=== PATIENT | female | born 1960 | race Caucasian/White ===

== ENCOUNTER 2020-08-20 10:58 | Emergency (ER) | payer OTHER, SELFPAY ==
[2020-08-20 11:15] VITALS: BP 128/69; PULSE 66; RESP 18; TEMP 36.1; O2SAT 100; BMI 27.3
--- NOTE | 2020-08-20 12:25 | XR_ITS ---
EXAMINATION: XR CHEST CLINICAL INFORMATION: Syncope. COMPARISON: None TECHNIQUE: 2 views of the chest were obtained. FINDINGS: No significant abnormality is noted involving the heart, lungs, mediastinum, bony thorax or soft tissues. XR/XR chest 2V IMPRESSION: Unremarkable chest exam.
--- NOTE | 2020-08-20 12:25 | ECG_ITS ---
Test Reason : SYNCOPE Blood Pressure : / mmHG Vent. Rate : 058 BPM Atrial Rate : 058 BPM P-R Int : 138 ms QRS Dur : 080 ms QT Int : 408 ms P-R-T Axes : -02 016 029 degrees QTc Int : 400 ms Sinus bradycardia Otherwise normal ECG No previous ECGs available Referred By: Terrie Stone Electronically Signed By:LILY GUZMAN MD
--- NOTE | 2020-08-20 12:25 | CT_ITS ---
EXAMINATION: CT HEAD WITHOUT CONTRAST CLINICAL INFORMATION: Near syncope COMPARISON: None TECHNIQUE: Contiguous axial imaging was performed from the skull base to vertex without intravenous administration of contrast. This CT examination was performed using dose optimization techniques as appropriate, variously including the following: *Automated exposure control *Adjustment of mA and/or kV according to patient size (this includes techniques or standardized protocols for targeted exams where dose is matched to indication/reason for exam; i.e. extremities or head) *Use of iterative reconstruction technique DLP: 561 mGy-cm FINDINGS: There is no evidence of acute intracranial hemorrhage or territorial infarction. No abnormal mass effect or midline shift is seen. Stiles to white matter differentiation is well preserved. No extra-axial fluid collections are identified. The ventricles are normal in size. There is no abnormal attenuation within the brain parenchyma. The osseous structures and soft tissues are normal. The mastoid air cells and visualized portions of the paranasal sinuses are well aerated. CT/CT head/brain wo con IMPRESSION: Unremarkable exam.
--- NOTE | 2020-08-20 12:32 | ED_ITS ---
HPI - Dizziness General Chief Complaint: Syncope Stated Complaint: DIZZY,NEAR SYNCOPAL Time Seen by Provider: 08/20/20 12:23 Source: patient Mode of arrival: ambulatory Limitations: no limitations History of Present Illness HPI Narrative: 59-year-old female with a past medical history of anxiety here with near syncopal episode yesterday. The patient also she was up making coffee and started to have some blurry vision, felt lightheaded and nauseous and sat herself down on the ground. She tells me this episode lasted for about 15 minutes and then self-resolved. She was able to walk up her stairs and she laid down to rest for the afternoon. She called her primary care doctor today was referred to the emergency department for further evaluation. She denies any associated chest pain, palpitations, headache, shortness of breaths with the initial episode. She denies syncope. She denies incontinence or any other additional symptoms. Today she is feeling back to her normal self. MD elicited complaint: lightheadedness and near syncope Onset (ago): day(s) Timing: sudden onset Severity: mild Description: lightheadedness History of similar symptoms: No Exacerbating factors: movement/ambulation Relieving factors: remaining still and lying down Associated symptoms: nausea Associated neuro symptoms: vision changes Related Data Allergies Allergy/AdvReac Type Severity Reaction Status Date / Time morphine [MORPHINE] Allergy Unknown UNKNOWN Verified 08/20/20 11:17 Review of Systems Review of Systems: Yes all other systems are reviewed and are negative Constitutional: Constitutional: Reports no additional constitutional complaints, Denies body ache(s), Denies chills, Denies fever(s), Denies headache(s) and Denies weakness Eyes: Eyes: Reports no additional eye complaints and Reports change in vision ENT: Reports system reviewed and no additional complaints, except as documented, Reports dizziness, Denies headache(s), Denies nasal congestion, Denies nasal discharge and Denies neck pain Cardiovascular: Cardiovascular: Reports no additional cardiovascular complaints, Denies chest pain, Denies leg edema and Denies dyspnea Respiratory: Respiratory: Reports no additional respiratory complaints, Denies cough and Denies dyspnea Gastrointestinal: Gastrointestinal: Reports no additional gastrointestinal complaints, Denies abdominal pain, Denies diarrhea, Reports nausea and Denies vomiting Genitourinary: Genitourinary: Reports no additional female genitourinary complaints and Denies urinary incontinence Musculoskeletal: Musculoskeletal: Reports no additional musculoskeletal complaints, Denies back pain, Denies arthralgias, Denies joint swelling, Denies neck pain, Denies numbness and Denies tingling Integumentary/Breasts: Skin/Breast: Reports system reviewed and no additional complaints, except as docu and Denies rash Neurologic: Reports system reviewed and no additional complaints, except as documented, Denies Abnormal speech present, Reports dizziness, Denies headache(s), Denies numbness, Denies tingling and Denies weakness PMFSH Past Medical History Attestation statement: The following information was validated with the patient. Source: old records reviewed and nursing notes reviewed Medical History Anxiety Foot fracture Social History Social History Alcohol intake: never Smoking Status: Never smoker Use of substances other than those prescribed or required for medical reasons: No Advance Directives: No Advance Directives Information Provided: Yes Physical Exam Vital Signs: Vital Signs: Last Vital Signs Temp 98 F 08/20/20 13:25 Pulse 70 08/20/20 13:25 Resp 16 08/20/20 13:25 BP 103/60 08/20/20 13:25 Pulse Ox 98 08/20/20 13:25 Body Mass Index 27.3 Const: General: cooperative, healthy appearing, comfortable and no acute dis tress Orientation/consciousness: patient oriented x3 Limitations: no limitations HENMT: Head: Yes normal to inspection Ears: hearing grossly normal bilaterally General nose exam: Normal external nose present Face and sinus: Yes normal facial exam Mouth: Normal oral and palatal mucosa present Throat: Yes posterior oropharynx normal Eyes: General: appearance normal, both eyes and all related structures Pupils: Equal, round and reactive pupils present Neck: Neck: Yes normal visual inspection Chest: Chest palpation & inspection: normal inspection of the chest Resp: Effort & Inspection: normal respiratory effort Auscultation: clear to auscultation bilaterally Cardio: Rate: regular rate Rhythm: regular rhythm Peripheral pulses: Peripheral pulses 2+ throughout GI: Inspection: Yes normal to inspection Palpation (GI): Soft to palpation and nontender Auscultation: normal bowel sounds Back/Spine/Pelvis: Thoracic/Lumbar Spine: thoracic and lumbar spine normal to inspection Skin: General skin exam: no rashes or lesions noted Neuro: General: patient oriented x3, no focal motor deficits and normal sensation to monofilament Cranial nerves: Yes CN's II-XII intact bilaterally, Yes Equal, round and reactive pupils present, Yes Bilaterally intact EOM present, Yes Nystagmus not present, Yes Normal facial strength present and Yes Midline tongue present Cognition (Neuro): normal cognition Speech: No Abnormal speech present Gait exam (Neuro): Normal gait present Motor exam (neuro): 5/5 motor strength present throughout Sensory Exam: Normal double simultaneous stimulation for sensation Deep tendon reflexes (DTR's): Right patellar reflex intensity grade: 2+, Left patellar reflex intensity grade: 2+, Right ankle reflex intensity grade: 2+ and Left ankle reflex intensity grade: 2+ Coordination: [id number] test normal, eonk-of-noft test normal and tandem gait normal Extrem: General: Yes normal to inspection Course Course Course Narrative: 59-year-old female here with a near syncopal episode which occurred yesterday. She is now feeling improved. The episode seems triggered by standing up moving around and improved with rest. On arrival she is well appearing. No complaints. Stable vital signs. Normal neurological exam. Will check labs, UA, EKG, orthostatics vital signs, CT head. 1420- imaging unremarkable. Orthostatics negative. Labs unremarkable. Patient unable to provide urine sample mother do not think we change in disposition. Likely in her syncope may be to hypoglycemia or vasovagal. Patient is feeling well and is asymptomatic and has been up and ambulating with no complaints. Discussed that she can follow up outpatient with her primary care doctor. Reviewed worrisome signs and symptoms and when to return to the emergency department. Comfortable discharge home. MDM - Dizziness MDM Narrative Medical decision making narrative: orthostatic hypotension, vasovagal syncope, dehydration, electrolyte abnormality, anemia, ACS, ICH versus lesion Less likely orthostatic hypotension with negative orthostatics, less likely dehydration with unremarkable labs, less likely electrolyte abnormality with [place] oral labs. Unlikely anemia with normal CBC. Unlikely ACS with unremarkable EKG and negative troponin with atypical symptoms. Less likely ICH/lesion with negative CT. Medical Records Attestation: I reviewed the patient's medical records. Lab Data Attestation: I reviewed the patient's lab results. Result diagrams: 08/20/20 13:18 08/20/20 13:18 Labs: Lab Results 08/20/20 08/20/20 08/20/20 Range/Units 13:18 13:18 13:18 WBC 9.0 (4.8-10.8) X10*3/uL RBC 4.75 (4.20-5.50) X10*6/uL Hgb 12.2 (12.0-16.0) g/dl Hct 38.9 (37-47) % MCV 81.9 (80-98) fL MCH 25.7 L (27.0-33.0) pg MCHC 31.4 (31.0-35.0) g/dl RDW 13.8 (11.0-16.0) % Plt Count 262 (160-400) X10*3/uL MPV 9.4 (9.4-12.3) fL Immature Gran % (Auto) 0.3 (0.0-0.4) % Neut % (Auto) 73.0 (45-73) % Lymph % (Auto) 16.8 L (20-40) % [place] % (Auto) 8.5 (2-11) % Eos % (Auto) 1.1 (0-4) % Baso % (Auto) 0.3 (0-2) % Lymph # (Auto) 1.5 (1.2-4.9) X10*3/uL [place] # (Auto) 0.8 (0.1-1.2) X10*3/uL Eos # (Auto) 0.1 (0.0-0.4) X10*3/uL Baso # (Auto) 0.0 (0.0-0.2) X10*3/uL Abs Immat Gran (auto) 0.03 (0.00-0.03) X10*3/uL Absolute Neuts (auto) 6.5 (2.0-8.3) X10*3/uL Absolute Nucleated RBC 0.000 (0.0-0.012) X10*3/uL Nucleated RBC % (auto) 0.0 (0.0-0.2) /100WBC Hold Blue Top SEE NOTE Sodium 140 (135-145) mmol/L Potassium 3.9 (3.3-5.1) mmol/l Chloride 106 (96-108) mmol/L Carbon Dioxide 27 (22-29) mmol/L Anion Gap 11 L (12-20) BUN 20 H (9-16) mg/dL Creatinine 0.71 (0.5-1.4) mg/dL Estim Creat Clear Calc 71.0 Estimated GFR > 60 Random Glucose 85 (60-115) mg/dL Calcium 9.2 (8.4-10.2) mg/dL Magnesium 1.9 (1.6-2.6) mg/dL Total Bilirubin 0.3 (0.0-1.0) mg/dL Direct Bilirubin < 0.2 (0.0-0.5) mg/dL AST 14 (5-31) U/L ALT 10 (0-31) U/L Alkaline Phosphatase 73 (39-117) U/L Troponin I High Sens (<3.5-17.0) ng/L Total Protein 6.9 (6.5-8.0) g/dL Albumin 4.2 (3.5-5.0) g/dL 08/20/20 Range/Units 13:18 WBC (4.8-10.8) X10*3/uL RBC (4.20-5.50) X10*6/uL Hgb (12.0-16.0) g/dl Hct (37-47) % MCV (80-98) fL MCH (27.0-33.0) pg MCHC (31.0-35.0) g/dl RDW (11.0-16.0) % Plt Count (160-400) X10*3/uL MPV (9.4-12.3) fL Immature Gran % (Auto) (0.0-0.4) % Neut % (Auto) (45-73) % Lymph % (Auto) (20-40) % [place] % (Auto) (2-11) % Eos % (Auto) (0-4) % Baso % (Auto) (0-2) % Lymph # (Auto) (1.2-4.9) X10*3/uL [place] # (Auto) (0.1-1.2) X10*3/uL Eos # (Auto) (0.0-0.4) X10*3/uL Baso # (Auto) (0.0-0.2) X10*3/uL Abs Immat Gran (auto) (0.00-0.03) X10*3/uL Absolute Neuts (auto) (2.0-8.3) X10*3/uL Absolute Nucleated RBC (0.0-0.012) X10*3/uL Nucleated RBC % (auto) (0.0-0.2) /100WBC Hold Blue Top Sodium (135-145) mmol/L Potassium (3.3-5.1) mmol/l Chloride (96-108) mmol/L Carbon Dioxide (22-29) mmol/L Anion Gap (12-20) BUN (9-16) mg/dL Creatinine (0.5-1.4) mg/dL Estim Creat Clear Calc Estimated GFR Random Glucose (60-115) mg/dL Calcium (8.4-10.2) mg/dL Magnesium (1.6-2.6) mg/dL Total Bilirubin (0.0-1.0) mg/dL Direct Bilirubin (0.0-0.5) mg/dL AST (5-31) U/L ALT (0-31) U/L Alkaline Phosphatase (39-117) U/L Troponin I High Sens < 3.5 (<3.5-17.0) ng/L Total Protein (6.5-8.0) g/dL Albumin (3.5-5.0) g/dL Imaging Data CT scan - head: Attestation: I personally reviewed and interpreted this imaging study as follows: Radiologist's impression: EXAMINATION: CT HEAD WITHOUT CONTRAST CLINICAL INFORMATION: Near syncope COMPARISON: None TECHNIQUE: Contiguous axial imaging was performed from the skull base to vertex without intravenous administration of contrast. This CT examination was performed using dose optimization techniques as appropriate, variously including the following: *Automated exposure control *Adjustment of mA and/or kV according to patient size (this includes techniques or standardized protocols for targeted exams where dose is matched to indication/reason for exam; i.e. extremities or head) *Use of iterative reconstruction technique DLP: 561 mGy-cm FINDINGS: There is no evidence of acute intracranial hemorrhage or territorial infarction. No abnormal mass effect or midline shift is seen. Stiles to white matter differentiation is well preserved. No extra-axial fluid collections are identified. The ventricles are normal in size. There is no abnormal attenuation within the brain parenchyma. The osseous structures and soft tissues are normal. The mastoid air cells and visualized portions of the paranasal sinuses are well aerated. CT/CT head/brain wo con IMPRESSION: Unremarkable exam. Chest x-ray: Attestation: I personally reviewed and interpreted this imaging study as follows: Radiologist's impression: EXAMINATION: XR CHEST CLINICAL INFORMATION: Syncope. COMPARISON: None TECHNIQUE: 2 views of the chest were obtained. FINDINGS: No significant abnormality is noted involving the heart, lungs, mediastinum, bony thorax or soft tissues. XR/XR chest 2V IMPRESSION: Unremarkable chest exam. ECG Data Attestation: I personally reviewed and interpreted this ECG as follows: ECG interpretation date: 08/20/20 ECG interpretation time: 11:40 Interpretation: sinus Bry with a rate of 58, normal MO, normal qrs, normal QT, normal ST segment Discharge Plan Discharge Clinical Impression: Near syncope Patient Disposition: Home, Self-Care Instructions: Near Syncope (ED) Additional Instructions: change positions slowly. If you feel lightheaded sit down immediately and is safe place Eat small frequent meals throughout the day. Stay well hydrated Referrals: Mahi Freeman MD [Primary Care Provider] - 2 days Interventions: ED Discharge Assessment Last Done: 08/20/20 14:22 Discharge Date/Time: 08/20/20 14:23
[2020-08-20 13:22] VITALS: BP 103/60; PULSE 60
[2020-08-20 13:23] VITALS: BP 111/70; PULSE 68
[2020-08-20 13:25] VITALS: BP 103/60; PULSE 70; RESP 16; TEMP 36.6; O2SAT 98
[2020-08-20 13:27] LABS: MANUAL DIFF FLAG NO
[2020-08-20 13:34] LABS: Basophils Percent Auto 0.3 % (0-2); Eosinophils Absolute Auto 0.1 X10*3/uL (0.0-0.4); Eosinophils Percent Auto 1.1 % (0-4); Hematocrit 38.9 % (37-47); Hemoglobin 12.2 g/dl (12.0-16.0); Imm Gran Abs Auto 0.03 X10*3/uL (0.00-0.03); Imm Gran Pct Auto 0.3 % (0.0-0.4); Lymphocytes Absolute Auto 1.5 X10*3/uL (1.2-4.9); Lymphocytes Percent Auto 16.8 % (20-40); Mean Corpuscular HGB Conc 31.4 g/dl (31.0-35.0); Mean Corpuscular Hemoglobin 25.7 pg (27.0-33.0); Mean Corpuscular Volume 81.9 fL (80-98); Mean Platelet Volume 9.4 fL (9.4-12.3); Monocytes Absolute Auto 0.8 X10*3/uL (0.1-1.2); Monocytes Percent Auto 8.5 % (2-11); Neutrophils Absolute Auto 6.5 X10*3/uL (2.0-8.3); Platelet Count 262 X10*3/uL (160-400); Red Blood Count 4.75 X10*6/uL (4.20-5.50); Red Cell Distribution Width 13.8 % (11.0-16.0)
[2020-08-20 14:02] LABS: Alanine Aminotransferase 10 U/L (0-31); Albumin Level 4.2 g/dL (3.5-5.0); Alkaline Phosphatase 73 U/L (39-117); Anion Gap 11 (12-20); Aspartate Amino Transferase 14 U/L (5-31); Bilirubin Direct < 0.2 mg/dL (0.0-0.5); Bilirubin Total 0.3 mg/dL (0.0-1.0); Blood Urea Nitrogen 20 mg/dL (9-16); Calcium 9.2 mg/dL (8.4-10.2); Carbon Dioxide 27 mmol/L (22-29); Chloride 106 mmol/L (96-108); Estimated Glomerular Filt Rate > 60; Glucose Random 85 mg/dL (60-115); Magnesium 1.9 mg/dL (1.6-2.6); Potassium 3.9 mmol/l (3.3-5.1); Sodium 140 mmol/L (135-145); Total Protein 6.9 g/dL (6.5-8.0)
[2020-08-20 14:06] LABS: Troponin-I High Sensitivity < 3.5 ng/L (<3.5-17.0)
== END 2020-08-20 14:23 | disposition home or self-care (01) ==
PROVIDERS: Nurse Practitioner Family; Emergency Provider Emergency Medicine Emergency Medical Services; PCP Internal Medicine
DX: R55 Syncope and collapse (principal); R42 Dizziness and giddiness
CPT/HCPCS: 36415; 70450; 71046; 80048; 80076; 83735; 84484; 85025; 93005; 99284; 99285

== ENCOUNTER 2021-03-09 09:22 | Emergency (ER) | payer OTHER, SELFPAY ==
[2021-03-09 10:01] VITALS: BP 109/64; PULSE 69; RESP 18; TEMP 36.6; O2SAT 98; BMI 30.9
--- NOTE | 2021-03-09 10:35 | ED.GENADULT ---
HPI - General Adult General Chief complaint: Extremity Injury, Lower Stated complaint: swollen legs, inflammation of toe Time Seen by Provider: 03/09/21 10:19 Source: patient Mode of arrival: ambulatory Limitations: no limitations History of Present Illness HPI narrative: 60 yo female presenting with nontraumatic right great toe pain for 1 week. She has been trying to get in to see her doctor but has not been able to. She has not been sleeping due to the pain. She reports the great toe is red and swollen. She has no history of similar episodes. She denies fevers. No trauma or injury. She is not diabetic. MD complaint: right great toe pain Onset (ago): week(s) (1) Location: right and lower extremity Radiation: non-radiation Severity: severe Severity scale (1-10): 8 Quality: stabbing and aching Pain Consistency: constant Relieving factors: none Exacerbating factors: movement Associated symptoms: denies other symptoms Treatments prior to arrival: none Related Data Previous Rx's Medication Instructions Recorded colchicine See Rx Instructions .ROUTE 03/09/21 .COMPLEX #6 tab naproxen 500 mg PO BID #20 tab 03/09/21 Allergies Allergy/AdvReac Type Severity Reaction Status Date / Time morphine [MORPHINE] Allergy Unknown UNKNOWN Verified 08/20/20 11:17 Review of Systems Review of Systems: Constitutional: No Fever, No Chills Cardiovascular: No Chest Pain, No SOB,, No Edema Respiratory: No Cough, No Sputum Gastrointestinal: No Nausea, No Vomiting Musculoskeletal: + joint pain, No Myalgias Skin: No Skin Lesions, No rash, +redness to great toe Neuro: No Weakness, No Numbness Heme/Lymph: No Bruising, No Lymphadenopathy PMFSH Past Medical History Attestation statement: The following information was validated with the patient. Medical History Anxiety Foot fracture Social History Social History Alcohol intake: never Advance Directives: Yes Advance Directives Information Provided: No Advance Directives on File: No Patient : No Physical Exam Vital Signs: Vital Signs: Last Vital Signs Temp 97.9 F 03/09/21 10:01 Pulse 69 03/09/21 10:01 Resp 18 03/09/21 10:01 BP 109/64 03/09/21 10:01 Pulse Ox 98 03/09/21 10:01 Body Mass Index 30.9 Appearance: Alert. Oriented X3. No acute distress. HEENT: normal inspection CVS: Normal heart rate and rhythm. Pulses normal. Respiratory: No respiratory distress. Skin: Skin warm and dry. Normal skin color. Normal skin turgor. No rashes. Extremities: right great toe with erythema, warmth, and tenderness to MCP joint and entire great toe. No nail bed abnormalities or tenderness. NV intact distally. Pain with slight movement of toe. Neuro: Oriented X 3. No motor deficit. No sensory deficit. Course Course Course Narrative: 60 y/o female presenting with right great toe pain, redness and swelling x1 week. Exam and clinical presentation are consistent with acute gout. No fevers to suggest septic joint. She is not diabetic. Will treat with colchicine and NSAID and have her f/u with her PCP next week. Patient counseled and agrees with plan. Stable for discharge home. Discharge Plan Discharge Clinical Impression: Gout Qualifiers: Gout site: toe Gout etiology: idiopathic Chronicity: acute Laterality: right Qualified Code(s): M10.071 - Idiopathic gout, right ankle and foot Patient Disposition: Home, Self-Care Instructions: Low Purine Diet (ED), Gout (ED) Additional Instructions: Take the medications as prescribed. Elevate your foot when able. Follow up with your doctor next week. If you have worsening pain come back to the ER for further evaluation. Prescriptions: New colchicine 0.6 mg tablet See Rx Instructions .ROUTE .COMPLEX Qty: 6 RF: 0 naproxen 500 mg tablet 500 mg PO BID Qty: 20 RF: 0
== END 2021-03-09 11:00 | disposition home or self-care (01) ==
PROVIDERS: Emergency Provider Emergency Medicine Emergency Medical Services; PCP Internal Medicine
DX: M10.071 Idiopathic gout, right ankle and foot (principal)
CPT/HCPCS: 99282; 99283

== ENCOUNTER 2021-04-19 21:26 | Emergency (ER) | payer OTHER, SELFPAY ==
--- NOTE | ~2021-04-19 | XR_ITS ---
EXAMINATION: XR HAND, RIGHT CLINICAL INFORMATION: Hand pain COMPARISON: None TECHNIQUE: PA, lateral, and oblique views of the right hand. FINDINGS: Some generalized osteopenia is present. The there is soft tissue swelling around the PIP joint of the fifth digit with pericapsular marked calcifications seen laterally. Some mild degenerative changes are present at the DIP joints. No fractures are seen. XR/XR hand RT 2V IMPRESSION: No evidence of a fracture. Exuberant calcification lateral to the PIP joint fifth digit as described above. This could be the residua of prior trauma. No gross erosive changes are seen and no joint space narrowing is detected at this joint
[2021-04-19 21:35] VITALS: BP 136/57; PULSE 57; RESP 20; TEMP 36.8; O2SAT 98; BMI 26.2
--- NOTE | 2021-04-19 23:09 | ED.SKABFB ---
HPI - Skin/Abscess/Foreign Bdy General Chief complaint: Skin/Abscess/Foreign Body Stated complaint: BUMP ON FINGER Time Seen by Provider: 04/19/21 22:09 Source: patient Mode of arrival: ambulatory Limitations: no limitations History of Present Illness HPI narrative: no bites, no known trauma, was cleaning a closet when it started MD complaint: other (R little finger pain) Onset (ago): day(s) (2) Tetanus up to date: yes Location: RUE (small finger (5th)) Severity: moderate Quality: aching (throbbing) and constant Pain Consistency: constant Relieving factors: none Exacerbating factors: palpation and movement Context: other (states her finger just started hurting no known trauma) Associated symptoms: denies other symptoms Treatments prior to arrival: other (went to started cephalexin today) Related Data Previous Rx's Medication Instructions Recorded colchicine See Rx Instructions .ROUTE 03/09/21 .COMPLEX #6 tab naproxen 500 mg PO BID #20 tab 03/09/21 doxycycline hyclate 100 mg PO BID 7 Days #14 cap 04/19/21 hydrocodone-acetaminophen 1 tab PO Q6H PRN #12 tab 04/19/21 ondansetron 4 mg PO Q8H PRN #20 tab 04/19/21 prednisone 40 mg PO DAILY 4 Days #8 tab 04/19/21 Allergies Allergy/AdvReac Type Severity Reaction Status Date / Time morphine [MORPHINE] Allergy Unknown UNKNOWN Verified 04/19/21 21:35 Review of Systems Review of Systems: Constitutional : No Fever, No Chills ENT/Mouth : No Ear Pain, No Hoarseness, No sore throat Eyes: No Eye Pain, No Swelling, No Redness, No Foreign Body Cardiovascular : No Chest Pain, No SOB Respiratory : No Cough, No Dyspnea Gastrointestinal : No Nausea, No Vomiting, No Diarrhea, No abdominal Pain Genitourinary : No Dysuria, No Hematuria Musculoskeletal : positive joint pain, No Myalgias, pos Joint Swelling Skin : No Skin lacerations, pos rash Neuro : No Weakness, No Numbness, No Loss of Consciousness PMFSH Past Medical History Attestation statement: The following information was validated with the patient. Medical History Anxiety Foot fracture Gout Social History Social History (Updated 04/19/21 @ 23:22 by Nely Awan DO) Alcohol intake: never Patient Tobacco Use Status: Never used Tobacco Advance Directives: No Advance Directives Information Provided: Yes Patient : No Physical Exam Vital Signs: Vital Signs: Last Vital Signs Temp 98.2 F 04/19/21 21:35 Pulse 57 04/19/21 21:35 Resp 20 04/19/21 21:35 BP 136/57 L 04/19/21 21:35 Pulse Ox 98 04/19/21 21:35 Body Mass Index 26.2 Appearance: Alert. Oriented X3. No acute distress. Eyes: Pupils equal, round and reactive to light. ENT: Pharynx normal. Neck: Normal inspection. Neck supple. CVS: Normal heart rate and rhythm. Pulses normal. Respiratory: No respiratory distress. Breath sounds normal. Abdomen: Soft and non-tender. Skin: Skin warm and dry. Normal skin color. Normal skin turgor. Extremities: No lower extremity edema. No calf ttp R hand 5th digit on dorsum PIP red and warm to touch, mild swelling noted, some extension onto the 5th MCP, no prox tendon sheath ttp, distal NV intact, not overtly red but pink Neuro: Oriented X 3. No motor deficit. No sensory deficit. MDM - Skin/Abscess/Foreign Bdy MDM Narrative Medical decision making narrative: 60 yo female with hx of gout atraumatic R 5th digit pain and swelling - pink warm painful, no signs of tendon shealth involvement unsure if this is infectious or inflammatory will add on doxy as well as steroids and if no improvement in 1 day return to ED. Discharge Plan Discharge Clinical Impression: Arthralgia Qualifiers: Joint pain location: hand Laterality: right Qualified Code(s): M25.541 - Pain in joints of right hand Cellulitis Qualifiers: Site of cellulitis: extremity Site of cellulitis of extremity: finger Laterality: right Qualified Code(s): L03.011 - Cellulitis of right finger Patient Disposition: Home, Self-Care Instructions: Cellulitis (ED), Arthralgia (ED) Additional Instructions: return to ED for any worsening symptoms or concerns RETURN IF IT WORSENS OR NO IMPROVEMENT IN 24 HOURS CONTINUE CEPHALEXIN Prescriptions: New doxycycline hyclate 100 mg capsule 100 mg PO BID 7 Days Qty: 14 RF: 0 hydrocodone-acetaminophen 5-325 mg tablet 1 tab PO Q6H PRN (Reason: pain) Qty: 12 RF: 0 prednisone 20 mg tablet 40 mg PO DAILY 4 Days Qty: 8 RF: 0 ondansetron 4 mg tablet,disintegrating 4 mg PO Q8H PRN (Reason: nausea and vomiting) Qty: 20 RF: 0 No Action colchicine 0.6 mg tablet See Rx Instructions .ROUTE .COMPLEX Qty: 6 RF: 0 naproxen 500 mg tablet 500 mg PO BID Qty: 20 RF: 0 Stand Alone Forms: Work/School Release
[2021-04-19] MEDS: predniSONE 20 MG TABLET 40 MG PO (23:20)
[2021-04-19] MEDS: oxyCODONE HCl Immed Release 5 MG TABLET 10 MG PO (23:20)
== END 2021-04-19 23:53 | disposition home or self-care (01) ==
LOC: HO.ED 23:31
PROVIDERS: Emergency Provider Emergency Medicine
DX: M25.541 Pain in joints of right hand (principal); L03.011 Cellulitis of right finger; M10.9 Gout, unspecified
CPT/HCPCS: 73120; 99283

== ENCOUNTER 2023-09-16 08:01 | Outpatient (AMB) | payer OTHER, SELFPAY ==
--- NOTE | 2023-09-16 08:08 | MHC.OFFVIS ---
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 Intake Note: Pt presents to the office for new pt evaluation for trigeminal neuralgia. Crime Scene Investigator Required: No Allergies morphine [MORPHINE] Allergy (Unknown, Verified 09/16/23 08:09) UNKNOWN meloxicam Allergy (Mild, Uncoded 09/16/23 08:33) Rash HPI HPI Comments History of Present Illness Details 62y/o female with h/o left tirgeminal neurlagia comes for further evaluation.It started more than 10 years ago.The pain starts behind her left ear and radiates to lower face. she describes it like a tooth pain. she was diagnosed with trigeminal neuralgia.It was episodic but now she describes a chronic constant pain. sometimes she feels like her face is swollen.she denies numbness or tingling. But she is sensitive to touch.she has been on gabapentin . she was seen by a neurologist at [place] in the past.The pain does not worsen with cold air or brushing her teeth but any time she has an illness like sorethroat the pain worsens. she also has neck pain and used to see pain management. No further history was obtainable. [facility] Medical History Hyperlipidemia Depression Bipolar 1 disorder Left shoulder pain IBS (irritable bowel syndrome) Neck pain Attention and concentration deficit Ankylosing spondylitis lumbar region Carotid artery stenosis Facial pain, atypical Gout Foot fracture Anxiety Surgical History Hx of cholecystectomy Previous section Social History Alcohol intake: never Patient Tobacco Use Status: Never used Tobacco Physical Exam Vital Signs: Last Vital Signs Pulse 73 09/16/23 08:09 Resp 16 09/16/23 08:09 BP 102/58 L 09/16/23 08:09 Pulse Ox 98 09/16/23 08:09 Oxygen Delivery Method Room Air 09/16/23 08:09 BMI result Body Mass Index 29.1 Const General: cooperative, healthy appearing and in distress Nutritional Appearance: overweight Orientation/consciousness: patient oriented x3 Eyes Pupils: Equal, round and reactive pupils present Neck Other: tightness and tenderness in trapezius, levators, splenius on the left Neuro General: patient oriented x3, tone normal, moves all extremities and no focal motor deficits Cranial nerves: Yes Facial sensation intact/muscles of mastication intact, Yes Equal, round and reactive pupils present, Yes Bilaterally intact EOM present, Yes Nystagmus not present, Yes Normal facial strength present and Yes Midline tongue present Cognition (Neuro): normal cognition Gait exam (Neuro): Antalgic gait present Motor exam (neuro): 5/5 motor strength present throughout and Normal motor muscle tone present throughout Deep tendon reflexes (DTR's): Right triceps reflex intensity grade: 2+, Left triceps reflex intensity grade: 2+, Rt Biceps (C5, C6): 2+, Left biceps reflex intensity grade: 2+, Right brachioradialis reflex intensity grade: 2+, Left brachioradialis reflex intensity grade: 2+, Right patellar reflex intensity grade: 4+ and Left patellar reflex intensity grade: 4+ Coordination: [id number] test normal Assessment & Plan Assessment & Plan (1) Facial pain, atypical: Comment: ?trigeminal neuralgia Left Code(s): G50.1 - Atypical facial pain (2) Neck pain: Comment: torticollis Code(s): M54.2 - Cervicalgia Plan I will evaluate her with MRI brain to r/o trigeminal nerve irritation Trial her on tegretol XR 200mg bid- CBC CMP in 4 weeks she sees Rheumatology for her back pain and has a MRI L spine scheduled Orders: Orders MR head/brain wo/w con Today G50.1 - Atypical facial pain Complete Blood Count Auto Diff 1 Month G50.1 - Atypical facial pain Comprehensive Met. Panel 1 Month G50.1 - Atypical facial pain Medications: New carbamazepine ER 200 mg PO BID 60 tabs 6RF Discontinued prednisone Discontinued Reason: Entered in error 40 mg (2 x 20 mg) PO DAILY 4 days 8 tabs 0RF Coding Level of Care Code New Pt Level 4 (89382) Diagnoses Facial pain, atypical G50.1 Neck pain M54.2
[2023-09-16 08:09] VITALS: BP 102/58; PULSE 73; RESP 16; O2SAT 98; BMI 29.1
== END 2023-09-16 08:36 | disposition home or self-care (01) ==
PROVIDERS: PCP Internal Medicine; Referring Provider Internal Medicine; Visit Provider Psychiatry & Neurology Neurology
DX: G50.1 Atypical facial pain (principal); M54.2 Cervicalgia
CPT/HCPCS: 99204

== ENCOUNTER → 2023-09-16 08:01 | Outpatient (BNVA) | payer OTHER, SELFPAY | PROVIDERS: PCP Internal Medicine; Referring Provider Internal Medicine; Visit Provider Psychiatry & Neurology Neurology | DX: G50.1 Atypical facial pain (principal); M54.2 Cervicalgia | CPT/HCPCS: 99202 ==

== ENCOUNTER 2023-11-09 09:32 | Outpatient (REF) | payer OTHER, SELFPAY ==
--- NOTE | ~2023-11-09 | MR_ITS ---
MRI OF THE BRAIN WITH AND WITHOUT IV CONTRAST INDICATION: Atypical facial pain. COMPARISON: Head CT 08/20/2020. TECHNIQUE: Multiplanar multisequence MR imaging of the brain was obtained without and following the administration of 7 mL of Gadavist without complication. FINDINGS: There is no pathologic intracranial enhancement. A right superior cerebellar artery loop deformed the upper surface of the RIGHT trigeminal nerve cisternal segment. Mild T2 signal changes within the supratentorial and infratentorial brain are slightly progressed when compared to the 06/02/2018 brain MRI and remain nonspecific. There is no hydrocephalus, extra-axial surface collection, or herniation. The major flow voids at the skull base are preserved. There is no acute infarct on diffusion-weighted imaging. The midline structures are normal. The cerebellar tonsils are normally positioned. The cerebellum and brainstem are normal. The craniocervical junction is normal. Osseous marrow signal intensity is homogenous. The visualized soft tissues are unremarkable. There is a small right mastoid effusion. MR/MR head/brain wo/w con IMPRESSION: - No acute intracranial findings. No pathologic enhancement intracranially. No enhancing lesions along the course of the trigeminal nerves. A right superior cerebellar artery loop deformed the upper surface of the RIGHT trigeminal nerve cisternal segment. - Mild T2 signal changes within the supratentorial and infratentorial brain are slightly progressed when compared to the 06/02/2018 brain MRI and remain nonspecific. - Small right mastoid effusion.
[2023-11-09] MEDS: gadobutroL 7.5 ML VIAL IVPUSH (10:29)
== END 2023-11-09 09:33 | disposition home or self-care (01) ==
LOC: HO.MRI 09:32
PROVIDERS: PCP Internal Medicine; Visit Provider Psychiatry & Neurology Neurology
DX: G50.1 Atypical facial pain (principal)
CPT/HCPCS: 70553; A9585

== ENCOUNTER 2023-11-26 12:57 | Outpatient (AMB) | payer OTHER, SELFPAY ==
--- NOTE | 2023-11-26 13:15 | A.OFFVIS_ITS ---
Intake Vital Signs 11/26/23 13:22 Height 5 ft Weight 143 lb 2 oz BMI 27.9 BP 112/70 Blood Pressure Location Lt brachial Position Sitting Pulse 64 Pulse Source Pulse Oximeter Pulse Oximetry (%) 98 Oxygen Delivery Method Room Air Intake Visit Reasons: 1m f/u Trigeminal Neuralgia Per - CONF Intake Note: Patient presents for 1 month f/u. Allergies morphine [MORPHINE] Allergy (Unknown, Verified 11/26/23 13:20) UNKNOWN meloxicam Allergy (Mild, Uncoded 09/16/23 08:33) Rash HPI HPI Comments History of Present Illness Details 62 y/o female with h/o left tir geminal neurlagia comes for follow up. Brain MRI report reviewed. -No acute intracranial findings. No path ologic enhancement intracranially. No enhancing lesions along the course of the trigeminal nerves. A right superior cerebellar artery loop deformed the upper surface of the RIGHT trigeminal nerve cisternal segment. - Mild T2 signal changes within the supr atentorial and infratentorial brain are slightly progressed when compared to the 06/02/2018 brain MRI and remain nonspecific. - Small right mastoid effusion. Pt reports she feels something like a small ball inside of her anterior and lateral neck. It is not painful, but she constantly feeling something sitting inside of her neck. Pt denies numbness or tingling, but sensitive to touch. She tried tegretol XR 200mg bid for several times, but it caused GI upset and stomach ache. She stopped taking it. [facility] Medical History Hyperlipidemia Depression Bipolar 1 disorder Left shoulder pain IBS (irritable bowel syndrome) Neck pain Attention and concentration deficit Ankylosing spondylitis lumbar region Carotid artery stenosis Facial pain, atypical Gout Foot fracture Anxiety Surgical History Hx of cholecystectomy Previous section Social History Alcohol intake: never Patient Tobacco Use Status: Never used Tobacco Review of Systems Const All systems reviewed & are unremarkable except as noted in HPI and below Physical Exam Vital Signs: Last Vital Signs Pulse 64 11/26/23 13:22 BP 112/70 11/26/23 13:22 Pulse Ox 98 11/26/23 13:22 Oxygen Delivery Method Room Air 11/26/23 13:22 BMI result Body Mass Index 27.9 Const General: cooperative, healthy appearing and in distress Nutritional Appearance: overweight Orientation/consciousness: patient oriented x3 Eyes Pupils: Equal, round and reactive pupils present Neck Other: tightness and tenderness in trapezius, levators, splenius on the left Neuro General: patient oriented x3, tone normal, moves all extremities and no focal motor deficits Cranial nerves: Yes Facial sensation intact/muscles of mastication intact, Yes Equal, round and reactive pupils present, Yes Bilaterally intact EOM present, Yes Nystagmus not present, Yes Normal facial strength present and Yes Midline tongue present Cognition (Neuro): normal cognition Gait exam (Neuro): Antalgic gait present Motor exam (neuro): 5/5 motor strength present throughout and Normal motor muscle tone present throughout Deep tendon reflexes (DTR's): Right triceps reflex intensity grade: 2+, Left triceps reflex intensity grade: 2+, Rt Biceps (C5, C6): 2+, Left biceps reflex intensity grade: 2+, Right brachioradialis reflex intensity grade: 2+, Left brachioradialis reflex intensity grade: 2+, Right patellar reflex intensity grade: 4+ and Left patellar reflex intensity grade: 4+ Coordination: [id number] test normal Assessment & Plan Assessment & Plan (1) Facial pain, atypical: Comment: ?trigeminal neuralgia Left Code(s): G50.1 - Atypical facial pain (2) Neck pain: Comment: torticollis Code(s): M54.2 - Cervicalgia Plan Advised patient to undergo US of her neck soft tissue to check thyroid, lymph node lesions, and other masses. Pt was evaluated with Dr. Buitrago. Orders: Orders US soft tiss head and/or neck 11/26/23 G50.1 - Atypical facial pain, M54.2 - Cervicalgia Coding Level of Care Code Est Pt Level 3 (46477) Diagnoses Facial pain, atypical G50.1 Neck pain M54.2
[2023-11-26 13:22] VITALS: BP 112/70; PULSE 64; O2SAT 98; BMI 27.9
== END 2023-11-26 13:50 | disposition home or self-care (01) ==
LOC: HO.HSMC 12:57
PROVIDERS: PCP Internal Medicine; Visit Provider Nurse Practitioner Family
DX: G50.1 Atypical facial pain (principal); M54.2 Cervicalgia
CPT/HCPCS: 99213

== ENCOUNTER → 2023-11-26 12:57 | Outpatient (BNVA) | payer OTHER, SELFPAY | PROVIDERS: PCP Internal Medicine; Visit Provider Nurse Practitioner Family | DX: G50.1 Atypical facial pain (principal); M54.2 Cervicalgia | CPT/HCPCS: 99212 ==

== ENCOUNTER 2025-07-19 11:04 | Emergency (ER) | payer OTHER, SELFPAY ==
--- NOTE | ~2025-07-19 | XR_ITS ---
EXAMINATION: XR FOOT, LEFT CLINICAL INFORMATION: pain COMPARISON: None available. TECHNIQUE: AP, lateral, and oblique views of the left foot. FINDINGS: Degenerative changes in the proximal distal interphalangeal joints of the toes. Probable osteotomy versus old trauma in the proximal phalanx of the fourth toe. Degenerative changes in the tarsometatarsal joints. Small plantar calcaneal spur. Small exostosis at the Achilles tendon insertion. No joint effusion. No lytic or blastic lesions. No acute cortical disruption or malalignment. XR/XR foot LT min 3V IMPRESSION: Osteoarthrosis/osteoarthritis without acute fracture or dislocation. Probable mild enthesopathy, Achilles tendon. Electronically signed by: Tray Mcdermott MD 07/19/2025 12:01 PM EDT
[2025-07-19 11:28] VITALS: BP 111/55; PULSE 85; RESP 16; TEMP 36.2; O2SAT 99; BMI 27.6
--- NOTE | 2025-07-19 11:29 | ED_ITS ---
HPI - Extremity Injury (Lower) General Chief Complaint: Extremity Problem Stated Complaint: Foot pain/swelling Time Seen by Provider: 07/19/25 11:40 Source: patient, family and old records reviewed Mode of arrival: ambulatory Limitations: no limitations History of Present Illness ED Provider: PAUL SAPP Narrative: 64 yo female with PMH of IBS, HLD, depression, bipolar, gout here with c/o few days of atraumatic L foot pain around the joint of the great toe with some redness and warmth. No numbness, weakness, No swelling or pain in calf. She has not taken anything for it at this point. complaint: other (foot pain) Onset (ago): day(s) (few) Injury: Left: foot Type of Injury: other Place: home Severity: moderate Relieving factors: immobilization Exacerbating factors: weight bearing, movement and palpation Associated symptoms: swelling Other symptoms: none Related Data Home Medications ?Medication ?Instructions ?Recorded ?Confirmed albuterol sulfate 90 mcg/actuation 1 inh inhalation Q4 -6H PRN 09/16/23 breath activated powder inhaler aspirin 81 mg chewable tablet 81 mg PO DAILY 09/16/23 atorvastatin 40 mg tablet 40 mg PO DAILY 09/16/23 azelastine 205.5 mcg (0.15 %) 1 spray intranasal BEDTI ME 09/16/23 nasal spray cetirizine 10 mg chewable tablet 10 mg PO DAILY dextromethorphan-guaifenesin 5 10 ml PO Q4-8H PRN 08/28 10/19 mg-100 mg/5 mL oral liquid fluoxetine 20 mg capsule 20 mg PO DAILY 09/16/23 fluticasone furoate 100 1 inh inhalation DAILY 09/16 mcg-vilanterol 25 mcg/dose inhalation powder gabapentin 300 mg capsule 300 mg PO BID 09/16/23 guaifenesin 600 mg tablet, 600 mg PO BID 09/16/23 extended release 12 hr (Mucinex) lorazepam 1 mg tablet 1 mg PO DAILY PRN 09/16/23 montelukast 10 mg tablet 10 mg PO DAILY 09/16/23 (Singulair) triamcinolone acetonide 55 mcg 1 spray intranasal PAOLA Y 09/16/23 nasal spray aerosol umeclidinium 62.5 mcg-vilanterol 1 inh inhalation PAOLA Y 12/21/23 25 mcg/actuation powdr for inhalation zolpidem 10 mg tablet 10 mg PO BEDTIME 09/16/23 Previous Rx's ?Medication ?Instructions ?Recorded colchicine 0.6 mg tablet See Rx Instructions .Route 0 03/09/21 .COMPLEX #6 tabs naproxen 500 mg tablet 500 mg PO BID #20 tabs 03/09 hydrocodone 5 mg-acetaminophen 325 1 tab PO Q6H PRN pa in #12 tabs 04/19/21 mg tablet ondansetron 4 mg disintegrating 4 mg PO Q8H PRN nausea and 04/19/21 tablet vomiting #20 tabs carbamazepine 200 mg 200 mg PO BID #60 tabs 09/16 tablet,extended release,12 hr hydrocodone 5 mg-acetaminophen 325 1 tab PO Q6H PRN pa in #10 tabs 07/19/25 mg tablet prednisone 20 mg tablet 40 mg (2 x 20 mg) PO DAILY 4 days 07/19/25 #8 tabs Allergies Allergy/AdvReac Type Severity Reaction Status Date / Time morphine (MORPHINE) Allergy Unknown UNKNOWN Verified 07/19/25 11:29 meloxicam Allergy Mild Rash Uncoded 09/16/23 08:33 Review of Systems 2 Review of Systems: Constitutional : No Fever, No Chills ENT/Mouth : No Ear Pain, No Hoarseness, No sore throat Eyes: No Eye Pain, No Swelling, No Redness, No Foreign Body Cardiovascular : No Chest Pain, No SOB Respiratory : No Cough, No Dyspnea Gastrointestinal : No Nausea, No Vomiting, No Diarrhea, No abdominal Pain Genitourinary : No Dysuria, No Hematuria Musculoskeletal : positive joint pain, No Myalgias, No Joint Swelling Skin : No Skin lacerations, No rash All other systems reviewed and are negative [facility] Past Medical History Attestation statement: The following information was validated with the patient. Source: old records reviewed Medical History Hyperlipidemia Depression Bipolar 1 disorder Left shoulder pain IBS (irritable bowel syndrome) Neck pain Attention and concentration deficit Ankylosing spondylitis lumbar region Carotid artery stenosis Facial pain, atypical Gout Foot fracture Anxiety Surgical History Hx of cholecystectomy Previous section Social History Social History Alcohol intake: never Patient Tobacco Use Status: Never used Tobacco Physical Exam 2 Vital Signs: Vital Signs: Last Vital Signs Temp 97.1 F 07/19/25 11:28 Pulse 85 07/19/25 11:28 Resp 16 07/19/25 11:28 BP 111/55 L 07/19/25 11:28 Pulse Ox 99 07/19/25 11:28 O2 Del Method Room Air 07/19/25 11:28 BMI result Body Mass Index 27.6 Appearance: Alert. Oriented X3. No acute distress. Eyes: Pupils equal, round and reactive to light. ENT: Pharynx normal. Neck: Normal inspection. Neck supple. CVS: Normal heart rate and rhythm. Pulses normal. Respiratory: No respiratory distress. Breath sounds normal. Abdomen: Soft and nontender. Skin: Skin warm and dry. Normal skin color. Normal skin turgor. Extremities: No lower extremity edema. L great toe MTP joint mild swelling and redness, ttp on dorrsum of foot - DP and PT 2+ foot warm and well perfused Neuro: Oriented X 3. No motor deficit. No sensory deficit. Course Course Course Narrative: This is an RME: Additional HPI, ROS, PE not included below will be deferred to primary provider. RME assessment and note performed by: Delores Rodriguez PA-C This is a 2-ybhe-mde-female, with a hx of HLD, BPD, who presents to the ER with complaints of left foot pain x 3 days. Reports that her left foot is red, painful. Reports that she has had no injury or trauma. Reports hx of gout, symptoms feel some what similar. Left foot nonerythematous, tender throughout. No calf tenderness Plan: xrays, labs, further ER eval needed Medical Decision Making Medical Decision Making [facility] Narrative: 64 yo female with PMH of IBS, HLD, depression, bipolar, gout here with c/o L foot pain no trauma on exam appears consistent with gout which she has had before on exam on cellulitis, she is NV intact, labs, XRAY and start on steroids and pain control. discussed side effects of steroids with patient Differential Diagnosis Differential Diagnoses: The differential diagnosis associated with the presentation includes gout, arthritis, infection Admission/Observation Consideration of admission/observation: Escalation of care including admission/observation considered labs reassuring stable for DC Lab Data [facility] Lab Attestation statement: I reviewed the patient's lab results. 07/19/25 11:52 07/19/25 11:52 Labs: Lab Results 07/19/25 Range/Units 11:52 WBC 8.9 (4.8-10.8) X10*3/uL RBC 4.83 (4.20-5.50) X10*6/uL Hgb 12.3 (12.0-16.0) g/dl Hct 39.2 (37.0-47.0) % MCV 81.2 (80.0-98.0) fL MCH 25.5 L (27.0-33.0) pg MCHC 31.4 (31.0-35.0) g/dl RDW 14.2 (11.0-16.0) % Plt Count 242 (160-400) X10*3/uL MPV 9.5 (9.4-12.3) fL Immature Gran % (Auto) 0.3 (0.0-0.4) % Neut % (Auto) 73.2 H (45-73) % Lymph % (Auto) 17.5 L (20-40) % [place] % (Auto) 7.4 (2-11) % Eos % (Auto) 1.1 (0-4) % Baso % (Auto) 0.5 (0-2) % Lymph # (Auto) 1.6 (1.2-4.9) X10*3/uL [place] # (Auto) 0.7 (0.1-1.2) X10*3/uL Eos # (Auto) 0.1 (0.0-0.4) X10*3/uL Baso # (Auto) 0.0 (0.0-0.2) X10*3/uL Abs Immat Gran (auto) 0.03 (0.00-0.03) X10*3/uL Absolute Neuts (auto) 6.5 (2.0-8.3) x10*3/uL Absolute Nucleated RBC 0.000 (0.0-0.012) X10*3/uL Nucleated RBC % (auto) 0.0 (0.0-0.2) /100WBC Independent Interpretation I performed an independent interpretation of an: Plain X-Ray (no fx) Radiology Impression Discussion of test interpretation with radiology: I have reviewed the radiologist's reading. External Record Review External record reviewed: Outpatient record Prescription Management I considered prescription management with: Pain Medication and Other Discharge Plan Discharge Clinical Impression: Gout Qualifiers: Gout site: foot Gout etiology: unspecified cause Chronicity: acute Laterality: left Qualified Code(s): M10.9 - Gout, unspecified Patient Disposition: Home, Self-Care Instructions: Gout (ED) Additional Instructions: labs reassuring xray no break take all meds with food return for any worsening pain, increased redness, fever over 100.4 or any other concersn. Prescriptions: New hydrocodone-acetaminophen 5-325 mg tablet 1 tab PO Q6H PRN (Reason: pain) Qty: 10 0RF Rx Instructions: partial fill okay; Partial Fill upon patient request. prednisone 20 mg tablet 40 mg PO DAILY 4 Days Qty: 8 0RF No Action colchicine 0.6 mg tablet See Rx Instructions .ROUTE .COMPLEX Qty: 6 0RF Rx Instructions: Take 2 tabs NOW then 1 tab an hour later. If still symptomatic in 3 days, repeat regimen naproxen 500 mg tablet 500 mg PO BID Qty: 20 0RF hydrocodone-acetaminophen 5-325 mg tablet 1 tab PO Q6H PRN (Reason: pain) Qty: 12 0RF ondansetron 4 mg tablet,disintegrating 4 mg PO Q8H PRN (Reason: nausea and vomiting) Qty: 20 0RF atorvastatin 40 mg tablet 40 mg PO DAILY aspirin 81 mg tablet,chewable 81 mg PO DAILY cetirizine 10 mg tablet,chewable 10 mg PO DAILY zolpidem 10 mg tablet 10 mg PO BEDTIME lorazepam 1 mg tablet 1 mg PO DAILY PRN gabapentin 300 mg capsule 300 mg PO BID albuterol sulfate 90 mcg/actuation aerosol powdr breath activated 1 inh inhalation Q4-6H PRN fluticasone furoate-vilanterol 100-25 mcg/dose blister with device 1 inh inhalation DAILY triamcinolone acetonide 55 mcg aerosol,spray 1 spray intranasal DAILY Rx Instructions: administer into each nostril montelukast [Singulair] 10 mg tablet 10 mg PO DAILY azelastine 205.5 mcg (0.15 %) spray,non-aerosol 1 spray intranasal BEDTIME Rx Instructions: administer into each nostril dextromethorphan-guaifenesin 5-100 mg/5 mL liquid 10 ml PO Q4-8H PRN carbamazepine 200 mg tablet extended release 12 hr 200 mg PO BID Qty: 60 6RF umeclidinium-vilanterol 62.5-25 mcg/actuation blister with device 1 inh inhalation DAILY fluoxetine 20 mg capsule 20 mg PO DAILY guaifenesin [Mucinex] 600 mg tablet extended release 12hr 600 mg PO BID Print Language: Tongan
[2025-07-19 11:56] LABS: MANUAL DIFF FLAG NO
[2025-07-19 12:00] LABS: Hematocrit 39.2 % (37.0-47.0); Hemoglobin 12.3 g/dl (12.0-16.0); Imm Gran Abs Auto 0.03 X10*3/uL (0.00-0.03); Imm Gran Pct Auto 0.3 % (0.0-0.4); Lymphocytes Absolute Auto 1.6 X10*3/uL (1.2-4.9); Mean Corpuscular HGB Conc 31.4 g/dl (31.0-35.0); Mean Corpuscular Hemoglobin 25.5 pg (27.0-33.0); Mean Corpuscular Volume 81.2 fL (80.0-98.0); NRBC Abs Auto 0.000 X10*3/uL (0.0-0.012); NRBC Pct Auto 0.0 /100WBC (0.0-0.2); Platelet Count 242 X10*3/uL (160-400); Red Blood Count 4.83 X10*6/uL (4.20-5.50); White Blood Count 8.9 X10*3/uL (4.8-10.8)
[2025-07-19 12:18] LABS: Alanine Aminotransferase 15 U/L (0-31); Albumin Level 4.2 g/dL (3.5-5.0); Alkaline Phosphatase 101 U/L (39-117); Anion Gap 10 (12-20); Aspartate Amino Transferase 23 U/L (5-31); Blood Urea Nitrogen 16 mg/dL (9-16); Calcium 8.9 mg/dL (8.4-10.2); Carbon Dioxide 29 mmol/L (22-29); Chloride 109 mmol/L (96-108); Creatinine Clr Calc Pharmacy 65.9; Estimated Glomerular Filt Rate > 60; Potassium 3.6 mmol/L (3.3-5.1); Sodium 144 mmol/L (135-145); Total Protein 6.9 g/dL (6.5-8.0); Uric Acid 3.4 mg/dL (2.4-5.7)
[2025-07-19] MEDS: HYDROcodone Bit/Acetam 5/325 TABLET 1 TAB PO (12:43)
[2025-07-19 13:10] VITALS: BP 134/67; PULSE 71; RESP 20; O2SAT 99
--- NOTE | 2025-07-19 13:16 | MHC.EDTECH ---
Per Dr. wAan, Pt needs cane but is unable to order one. Crutches were ordered but he requested a cane be given in its place.
[2025-07-19 13:24] VITALS: BP 134/67; PULSE 71; RESP 20; TEMP -17.7; TEMP 0; O2SAT 99
--- OUTSIDE RECORDS SUMMARY | 2025-07-19 15:20 | XMS_ITS | Encounter Summary ---
Author Organization [facility] Address [address] [place] [address] Care Team Providers Care Dope Maintenance Worker Name Role Phone Juancarlos Stahl MD Primary Care Provider [phone] Encounter Details Date Type Department Care Team ([facility] Contact Info) Description 07/06/2025 Results Follow-Up Pul[address] [phone] Karin Ac, JAIME [address] [place] [phone] Social History Tobacco Use Types Packs/Day Years Used Date Smoking Tobacco: Former Cigarettes Q uit: 03/27/1992 Passive Smoke Exposure: Past Smokeless Tobacco: Never Alcohol Use Standard Drinks/Week Comments Yes 0 (1 standard drink = 0.6 oz pur e alcohol) Comments No Sex and Gender Information Value Date Recorded Sex Assigned at Not on file Legal Sex Female 5:37 AM EST Gender Identity Not on file Sexual Orientation Not on file documented as of this encounter Plan of Treatment Upcoming Encounters Date Type Department Care Team ([facility] Contact Info) Description 07/25/2025 9:45 AM EDT Office Visit Adult Medicine [address] [phone] Juancarlos Stahl MD [address] [place] [phone] 08/30/2025 10:35 AM EST Office Visit Pulmonology [address] [phone] Karin Ac, JAIME [address] [place] [phone] documented as of this encounter Visit Diagnoses Not on filedocumented in this encounter Care Teams Dope Maintenance Worker Relationship Specialty Start Date End Date Juancarlos Stahl MD [address] [place] [phone] PCP - General Internal Medicine 08/11/24 documented as of this encounter
--- OUTSIDE RECORDS SUMMARY | 2025-07-19 15:20 | XMS_ITS | Encounter Summary ---
Author Organization [facility] Address [address] [place] [address] Care Team Providers Care Rn Clinical Appeals Name Role Phone Juancarlos Stahl MD Primary Care Provider [phone] Reason for Visit * Reason Onset Date Comments Fitting for DME 07/16/2025 Encounter Details Date Type Department Care Team ([facility] Contact Info) Description 07/16/2025 Telephone Adult Medicine [address] [phone] Juancarlos Stahl MD [address] [place] [phone] Social History Tobacco Use Types Packs/Day Years [...] on file documented as of this encounter Progress Notes * Latoya Vasu - 07/16/2025 2:58 PM EDT DME REQUEST Name of Product: Commode, Specific information about product Smaller size, if possible # Needed 1 Reason patient is asking for this supply? Patient's bathroom is on the 2nd floor and she has 12 stairs to go up and down. Caller is asking for a portable commode for her to use downstairs Have you received this supply before? If yes , when?: No Have you discussed the need for this supply with a provider at a recent visit? If yes, with who andwhen? Yes. Pt told the caller this was requested before When completed: Fax to Latoya [phone] Who is requested? [facility] Is this a fax request? Have you told the patient it will take 7-10 days for completion of this request? Yes documented in this encounter Plan of Treatment Upcoming Encounters Date Type Department Care Team (Late st Contact Info) Description 07/25/2025 9:45 AM EDT Office Visit Adult Medicine [address] [phone] Juancarlos Stahl MD [address] [place] [address] 08/30/2025 10:35 AM EST Office Visit Pulmonology - [address] [place] [phone] Karin Ac, JAIME [address] [place] [phone] documented as of this encounter Visit Diagnoses Not on filedocumented in this encounter Care Teams Rn Clinical Appeals Relationship Specialty Start Date End Date Juancarlos Stahl MD [address] [place] [address] PCP - General Internal Medicine 08/11/24 documented as of this encounter
--- OUTSIDE RECORDS SUMMARY | 2025-07-19 15:20 | XMS_ITS | Encounter Summary ---
Author Organization [facility] Address [address] [place] [address] Care Team Providers Care Recruiting Operations Consultant Name Role Phone Juancarlos Stahl MD Primary Care Provider [phone] Reason for Visit * Reason Onset Date Comments Leg Pain 07/19/2025 Leg Swelling 07/19/2025 Encounter Details Date Type Department Care Team (Late st Contact Info) Description 07/19/2025 Nurse Triage Adult Medicine [address] [phone] Juancarlos Stahl MD [address] [place] [phone] Social History Tobacco Use Types Packs/Day Years [...] as of this encounter Progress Notes * Ela Keys RN - 07/19/2025 9:13 AM EDT She was instructed to go to the ER for further evaluation and treatment. She is in agreement with this plan and states she will go to [facility] ER. Reason for Disposition [1] Thigh, calf, or ankle swelling AND [2] only 1 side Answer Assessment - Initial Assessment Questions 1. ONSET: When did the swelling start? (e.g., minutes, hours, days) 3 days ago 2. LOCATION: What part of the leg is swollen? Are both legs swollen or just one leg? Left leg from her foot to below her knee 3. SEVERITY: How bad is the swelling? (e.g., localized; mild, moderate, severe) Moderate 4. REDNESS: Is there redness or signs of infection? Yes 5. PAIN: Is the swelling painful to touch? If Yes, ask: How painful is it? (Scale 1-10; mild, moderate or severe) She rates the pain as 9/10 6. FEVER: Do you have a fever? If Yes, ask: What is it, how was it measured, and when did it start? No 7. CAUSE: What do you think is causing the leg swelling? Unknown 8. MEDICAL HISTORY: Do you have a history of blood clots (e.g., DVT), cancer, heart failure, kidney disease, or liver failure? No 9. RECURRENT SYMPTOM: Have you had leg swelling before? If Yes, ask: When was the last time? What happened that time? Yes 10. OTHER SYMPTOMS: Do you have any other symptoms? (e.g., chest pain, difficulty breathing) No 11. : Is there any chance you are ? When was your last menstrual period? No. Pt is 64. Protocols used: Leg Swelling and Edema-A-AH * Taylatung Champion - 07/19/2025 8:42 AM EDT Patient call requires triage: Symptoms patient is presenting: inflammation on left foot & leg swollen, very painful, barely can move left foot. How long has patient had these symptoms?: 3 days For ALL patients calling to schedule any appointment (routine, sick visit, follow up, consult, etc.) in the outpatient setting please ask the following questions: Do you have fever of higher than 101, sore throat with difficulty swallowing or severe shortness ofbreath? no If YES to any of these above symptoms, send a message to triage and do not book. Red dot. If no, an audio or video visit should be booked. Have you had close contact with someone with Coronavirus in the last 14 days? no Have you traveled abroad? no Have you traveled recently to another state outside of [place], [place], [place], [place], [place], [place], [place]? no o If yes, did you quarantine for 14 days or have a negative covid test? no If yes to any of the above, patient is not to be scheduled in office until after 14 day quarantine or negative covid test. If pain or injury related was it due to an accident at work or from a motor vehicle accident? If yes, date of accident/Injury: No If yes, gather 3rd libertarian insurance information Third Libertarian Information: not applicable PCP: Juancarlos Stahl MD Payor: [employer] PLAN / Plan: [email or web address] MEDICAID / Product Type: *No Product type* / documented in this encounter Plan of Treatment Upcoming Encounters Date Type Department Care Team (Late st Contact Info) Description 07/25/2025 9:45 AM EDT Office Visit Adult Medicine [address] [phone] Juancarlos Stahl MD [address] [place] [address] 08/30/2025 10:35 AM EST Office Visit Pulmonology - [address] [place] [id number] [address], [address] [place] [phone] documented as of this encounter Visit Diagnoses Not on filedocumented in this encounter Care Teams Recruiting Operations Consultant Relationship Specialty Start Date End Date Juancarlos Stahl MD [address] [place] [address] PCP - General Internal Medicine 08/11/24 documented as of this encounter
--- OUTSIDE RECORDS SUMMARY | 2025-07-19 15:20 | XMS_ITS | Clinical Summary ---
Author Organization 175 [facility] Address [address] [place] [address] Phone Care Team Providers Care Government Employee Name Role Phone Juancarlos Stahl MD Primary Care Provider [phone] Allergies Active Allergy Reactions Criticality Noted Date Comments Meloxicam Other 07/29/2021 Myalgia and Joint Pain;Neck stiffness/numbness Morphine 03/11/2016 Chest pain Medications cetirizine (ZyrTEC) 10 mg tablet Take 1 tablet (10 mg total) by mouth 1 (one) time each day. 02/18/20 24 Active omeprazole OTC (PriLOSEC OTC) 20 mg EC tablet Take 1 tablet (20 mg total) by mouth 1 (one) time each day. 11/15/19 24 Active azelastine 205.5 mcg (0.15 %) spray,non-aeroso l Administer 0.15 % into affected nostril(s) 1 (one) time each day. 12/17/19 23 Active buPROPion XL (WELLBUTRIN XL) 150 mg 24 hr tablet Take 1 tablet (150 mg total) by mouth 1 (one) time each day. Active carBAMazepine XR (Tegretol XR) 200 mg 12 hr tablet Take 1 tablet (200 mg total) by mouth 2 (two) times a day. 09/21/20 23 Active FLUoxetine (PROzac) 20 mg capsule Take 1 capsule (20 mg total) by mouth 1 (one) time each day in the morning. 08/18/20 22 Active adalimumab (Humira,CF, Pen) 40 mg/0.4 mL pen Inject 0.4 mL (40 mg total) under the skin every 14 (fourteen) days. 06/30/20 21 Active LORazepam (ATIVAN) 1 mg tablet Take 1 tablet (1 mg total) by mouth 2 (two) times a day. Active zolpidem (Ambien) 10 mg tablet Take 1 tablet (10 mg total) by mouth. 09/24/20 20 Active aspirin 81 mg EC tablet Take 1 tablet (81 mg total) by mouth 1 (one) time each day. 02/07/20 22 Active polyethylene glycol (MIRALAX) 17 gram packet Take 17 g by mouth if needed for constipation. 30 packet 1 01/06/20 25 Active gabapentin (NEURONTIN) 100 mg capsule Take 1 capsule (100 mg total) by mouth 3 (three) times a day. 270 capsule 01/06/20 25 Active diclofenac (VOLTAREN) 1 % topical gel APPLY 2 GRAM FOUR TIMES DAILY TO AFFECTED JOINT 100 g 1 01/16/20 25 Active omeprazole (PriLOSEC) [address] capsule TAKE 1 CAPSULE BY MOUTH EVERY DAY 90 capsule 1 02/13/20 25 Active montelukast (SINGULAIR) 10 mg tabletIndication s:Chronic obstructive pulmonary disease, unspecified COPD type (CMS/HCC V24, CMS/[facility] V28),Moderate persistent asthma without complication Take 1 tablet (10 mg total) by mouth at bedtime. 90 each 3 03/29/20 25 026 Active triamcinolone (NASACORT) 55 mcg nasal inhalerIndicatio ns:Moderate persistent asthma without complication Administer 1 spray into each nostril 1 (one) time each day. 16.9 mL 03/29/20 25 Active benzonatate (TESSALON) 100 mg capsuleIndicatio ns:Chronic obstructive pulmonary disease, unspecified COPD type (CMS/HCC V24, CMS/HCC V28),Moderate persistent asthma without complication,For sujatha smoker Take 1 capsule (100 mg total) by mouth 3 (three) times a day if needed for cough. Do not crush or chew. 30 capsule 3 03/29/20 25 Active Ventolin HFA 90 mcg/actuation inhalerIndicatio ns:Interstitial lung disease (CMS/HCC V24, CMS/[facility] V28),Moderate persistent asthma without complication INHALE 2 PUFFS BY MOUTH EVERY 6 HOURS NEEDED FOR WHEEZE 18 each 3 04/02/20 25 Active naproxen (NAPROSYN) 500 mg tablet TAKE 1 TABLET BY MOUTH TWICE A DAY WITH MEALS 180 tablet 1 04/03/20 25 Active ibuprofen (ADVIL,MOTRIN) 800 mg tablet TAKE 1 TABLET BY MOUTH EVERY 8 HOURS NEEDED FOR PAIN 270 tablet 1 04/09/20 25 Active Symbicort 160-4.5 mcg/actuation inhalerIndicatio ns:Chronic obstructive pulmonary disease, unspecified COPD type (CMS/HCC V24, CMS/HCC V28),Moderate persistent asthma without complication Inhale 2 puffs by mouth 2 (two) times a day. Rinse mouth with water after use to reduce aftertaste and incidence of candidiasis. Do not swallow. 10.6 g 2 06/29/20 25 Active predniSONE (DELTASONE) 5 mg tabletIndication s:Chronic obstructive pulmonary disease, unspecified COPD type (CMS/HCC V24, CMS/HCC V28),Moderate persistent asthma without complication,Int erstitial lung disease (CMS/[facility] V24, CMS/[facility] V28),Pulmonary fibrosis (CMS/[facility] V24, CMS/[facility] V28) Take 1 tablet (5 mg total) by mouth 1 (one) time each day for 21 days. 21 each 06/29/20 25 025 Active atorvastatin (LIPITOR) 40 mg tablet TAKE 1 TABLET BY MOUTH EVERYDAY AT BEDTIME 90 tablet 1 07/12/20 25 Active atorvastatin (LIPITOR) 40 mg tablet Take 1 tablet (40 mg total) by mouth at bedtime. 90 tablet 1 01/06/20 25 025 Discontinued glycopyrrolate-f ormoterol (Bevespi Aerosphere) 9-4.8 mcg HFA aerosol inhaler inhalerIndicatio ns:Chronic obstructive pulmonary disease, unspecified COPD type (CMS/HCC V24, CMS/HCC V28),Moderate persistent asthma without complication Inhale 2 puffs by mouth 2 (two) times a day. 1 each 2 04/11/20 25 025 Discontinued budesonide (Pulmicort Flexhaler) 90 mcg/actuation inhalerIndicatio ns:Chronic obstructive pulmonary disease, unspecified COPD type (CMS/HCC V24, CMS/HCC V28),Moderate persistent asthma without complication Inhale 1 puff by mouth 2 (two) times a day. Rinse mouth with water after use to reduce aftertaste and incidence of candidiasis. Do not swallow. 1 each 2 04/11/20 25 025 Discontinued Active Problems Problem Noted Date Diagnosed Date Prediabetes 07/07/2024 Fibromyalgia 11/15/2023 Gastroesophageal reflux disease without esophagi tis 11/15/2023 COVID-19 07/23/2022 Carotid artery stenosis 02/06/2022 Snoring 12/22/2021 Overview (07/07/2024): 11/2021 Home Sleep Study did not reveal sleep apnea or nocturnal hypoxia. Chest pain 10/29/2021 Dizziness 10/29/2021 Palpitations 10/29/2021 History of COVID-19 09/23/2020 Overview (09/21/2024): Covid pneumonia, hospitalized, did not require intubation. Her mother of COVID pneumonia though. Ankylosing spondylitis of marcela mbosacral region ([facility] V24, [facility] V28) 08/03/2019 Overview (09/21/2024): 08/15- sacroiliitis on lumbar xray, Attention and concentration deficit 04/10/2019 Chronic left shoulder pain 01/27/2019 Myofascial pain on left side 01/27/2019 Neck pain on left side 01/27/2019 Trigeminal neuralgia of left side of face 2017 IBS (irritable bowel syndrome) 10/28/2017 Bipolar disorder ([facility] V24, [facility] V28) 10/28 Depression 04/18/2012 Hypercholesterolemia 04/18/2012 Encounters Date Type Department Care Team Description 07/19/2025 Nurse Triage Adult Medicine [address] [phone] Juancarlos Stahl MD 07/16/2025 Telephone Adult Medicine [address] [phone] Juancarlos Stahl MD 07/06/2025 10:00 AM EDT - 07/06/2025 11:59 PM EDT Hospital Encounter CT Scan - [place] [address] [place], [place] [phone] Interstitial lung disease (CMS/HCC V24, [facility]/HCC V28); Pulmonary fibrosis (CMS/HCC V24, [facility]/HCC V28) Discharge Disposition: Home or Self Care 07/06/2025 Results Follow-Up Pulmonology [facility] [address] [facility] [address] [place] [phone] Karin Ac NP 06/29/2025 11:50 AM EDT Office Visit Pulmonology [facility] [address] [facility] [address] [place] [phone] Karin Ac NP Chronic obstructive pulmonary disease, unspecified COPD type (CMS/HCC V24, CMS/HCC V28); Moderate persistent asthma without complication; Interstitial lung disease (CMS/HCC V24, CMS/HCC V28); Pulmonary fibrosis (CMS/HCC V24, CMS/HCC V28) 05/31/2025 11:51 AM EDT - 05/31/2025 11:59 PM EDT Hospital Encounter XRAY [address] [phone] Acute cough; Upper back pain Discharge Disposition: Home or Self Care 05/31/2025 11:30 AM EDT Office Visit Adult Medicine [address] [phone] Henry Cespedes PA Acute cough (Primary Dx); Upper back pain; Moderate persistent asthma without complication 05/29/2025 Telephone Adult Medicine [address] [phone] Juancarlos Stahl MD 05/25/2025 Nurse Triage Adult [address] [phone] Juancarlos Stahl MD from Last 3 Months Immunizations Immunization Administration Dates Next Due Pfizer SARS-CoV-2 COVID-19, mRNA, LNP-S, preservative free 02/14/2021,01/24/2021 Tdap Tetanus diptheria acell ular pertussis (Boostrix; Adacel) 7yo and older 05/12/2012 Surgical History Surgery Date Site/Laterality Comments COLONOSCOPY 06/23/2012 normal SECTION : x3 CHOLECYSTECTOMY ESOPHAGOGASTRODUODENOSCOPY 09/19/2012 visually normal; esophageal bx: normal. ESOPHAGOGASTRODUODENOSCOPY 04/20/16 normal COLONOSCOPY 06/23/12 normal COLONOSCOPY 04/20/16 normal; repeat in 10 yrs Medical History Medical History Date Comments Gallstone 07/20/2012 DX:Gallstone Bipolar disorder ([facility] V24, [facility] V28) 11/14 IBS (irritable bowel syndrome) 10/28/2017 Trigeminal neuralgia of left side of face 12/30/19 Chronic left shoulder pain 01/27/2019 Neck pain on left side 01/27/2019 Attention and concentration deficit 04/10/2019 Hyperlipidemia Family History Medical History Relation Name Comments Breast cancer Aunt p. cousin Colon cancer Neg Hx Heart attack Neg Hx Ovarian cancer Neg Hx Uterine cancer Neg Hx Relation Name Status Comments Aunt p. cousin Social History Tobacco Use Types Packs/Day Years Used Date Smoking Tobacco: Former Cigarettes Q uit: 03/27/1992 Passive Smoke Exposure: Past Smokeless Tobacco: Never Tobacco Cessation:Counseling Given: Not Answered Alcohol Use Standard Drinks/Week Comments Yes 0 (1 standard drink = 0.6 oz pur e alcohol) Comments No Sex and Gender Information Value Date Recorded Sex Assigned at Not on file Legal Sex Female 5:37 AM EST Gender Identity Not on file Sexual Orientation Not on file Obstetrics History Para Term AB IAB SAB Ectopic Multiple Livin g Live Births 3 3 3 3 Date Outcome GA Total Labor Labor/2nd/3rd Weight Sex Type Anes PTL Malgorzata A1 A5 Name Clin Term Term Term Last Filed Vital Signs Vital Sign Reading Time Taken Comments Blood Pressure 124/80 06/29/2025 11:46 AM EDT Pulse 67 06/29/2025 11:46 AM EDT Temperature 36.4 C (97.5 F) 06/29/2025 11:46 AM EDT Respiratory Rate 16 06/29/2025 11:4 6 AM EDT Oxygen Saturation 98% 06/29/2025 11: 46 AM EDT Inhaled Oxygen Concentration - - Weight 68.4 kg (150 lb 12.8 oz) 025 11:46 AM EDT Height 152.4 cm (5') 06/29/2025 11:46 AM EDT Body Mass Index 29.45 06/29/2025 11:46 AM EDT Plan of Treatment Upcoming Encounters Date Type Department Care Team (Late st Contact Info) Description 07/25/2025 9:45 AM EDT Office Visit Adult Medicine [facility] [address] [place] [phone] Juancarlos Stahl MD [address] [place] [phone] 08/30/2025 10:35 AM EST Office Visit Pulmonology - [address] [place] [phone] Karin Ac, JAIME [address] [place] [phone] Health Maintenance Due Date Last Done Comments Pneumococcal Vaccine: 50+ Years (1 of 2 - PCV) 12/28/1979 RSV Immunization Adult Patients (1 - Risk 50-74 years 1-dose series) 2010 Zoster Vaccines (1 of 2) 2010 Cervical Cancer Screening: Pap Smear 06/28/2015 06/28/2012, 06/28/2012 DTaP,Tdap,and Td Vaccines (2 - Td or Tdap) 05/12/2022 05/12/2012 Social Influencers of Health Screening 09/05/2022 Depression Screening 09/27/2024 11/15/2023 COVID-19 Vaccine ( - season) 2025 02/14/2021, 01/24/2021 Influenza Vaccine (#1) 2025 Colorectal Cancer Screening: Colonoscopy 04/20/2026 04/20/2016 Breast Cancer Screening 03/26/2027 03/26/20, 03/17/2024, 03/17/2024, Additional history exists Cholesterol Screening (Lipid Panel) 01/08/2030 01/08/2025, 07/06/2024, 07/06/2024, Additional history exists HIV Screening Completed 12/06/2014 Hepatitis C Screening Completed 06/04/2021 HIB Vaccines Aged Out No longer eligi ble based on patient's age to complete this topic HPV Vaccines Aged Out No longer eligi ble based on patient's age to complete this topic Hepatitis A Vaccines Aged Out No long er eligible based on patient's age to complete this topic Hepatitis B Vaccines Aged Out No long er eligible based on patient's age to complete this topic IPV Vaccines Aged Out No longer eligi ble based on patient's age to complete this topic MMR Vaccines Aged Out No longer eligi ble based on patient's age to complete this topic Meningococcal ACWY Vaccine Aged Out N o longer eligible based on patient's age to complete this topic Meningococcal B Vaccine Aged Out No l onger eligible based on patient's age to complete this topic RSV Immunization Patients Under 20 months Aged Out No longer eligible based on patient's age to complete this topic Varicella Vaccines Aged Out No longer eligible based on patient's age to complete this topic Procedures Procedure Name Priority Date/Time Associated Diagnosis Comments CT CHEST WO CONTRAST Routine 07/06/2025 11:24 AM EDT Interstitial lung disease (CMS/HCC V24, CMS/HCC V28) Pulmonary fibrosis (CMS/HCC V24, CMS/HCC V28) [id number], RSV, FLU A AND B QUALITATIVE RT-PCR, LOCAL REFERENCE LAB Routine 05/31/2025 11:57 AM EDT Acute cough XR CHEST 2 VIEWS Routine 05/31/2025 11:5 6 AM EDT Acute cough Upper back pain MG MAMMO DIGITAL SCREENING W FRANDY BILAT Routine 03/26/2025 10:08 AM EDT Encounter for screening mammogram for breast cancer LIPID PANEL WITH REFLEX TO DIRECT LDL Routine 01/08/2025 8:11 AM EDT Hypercholesterolemi a Prediabetes DEPRESSION SCREENING Routine 11/15/2023 HEPATITIS C SCREENING Routine 06/04/2021 COLONOSCOPY Routine 04/20/2016 HIV SCREENING Routine 12/06/2014 HPV Routine 06/28/2012 from Last 3 Months or Most Recently Relevant to Health Maintenance Results * CT Chest wo Contrast (07/06/2025 11:24 AM EDT) Anatomical Region Laterality Modality Body Computed Tomogra phy 07/06/2025 2:14 PM EDT Impressions 07/06/2025 2:28 PM EDT Mild improvement in the subpleural reticulation within the posterior left lower lobe. Stable subpleural reticulation within the right lung. No evidence of honeycombing. -------- FINAL REPORT -------- Dictated By: Doreen Morales Dictated Date: 07/06/2025 14:14 ET Assigned Physician: Doreen Morales Reviewed and Electronically Signed By: Doreen Morales Signed Date: 07/06/2025 14:28 ET Workstation ID: [id number] Transcribed By: Self Edit Transcribed Date: 07/06/2025 14:14 ET Narrative 07/06/2025 2:[address] CHEST HISTORY: worsening symptoms and pulmonary function , patient has ILD with pulmonary fibrosis reevaluate. TECHNIQUE: Chest CT was performed utilizing contiguous noncontrasted axial images from the thoracic inlet to below the diaphragm. The images were reformatted in the coronal and sagittal planes. Radiation dosage is 10.46mGy COMPARISON: CT chest from 12/26/2021 FINDINGS: Base of neck: The thyroid and base of the neck are within normal limits. Mediastinum: The heart is normal in size, no pericardial effusion. Mild atherosclerosis of the thoracic aorta. Subcentimeter lymph nodes within the mediastinal stations. Lungs: Evaluation of the lung parenchyma demonstrates no focal consolidation or effusion. There is peripheral subpleural reticulation within the right lung and posterior left lower lobe. Faint groundglass attenuation within the subpleural posterior left lower lobe. The degree of interstitial changes are mildly improved within the posterior left lower lobe and overall stable within the right lung. No evidence of honeycombing. No consolidative changes within the lung parenchyma. Upper Abdomen: Limited visualization of the extreme upper abdomen demonstrates the patient is status post cholecystectomy. MSK: Soft tissues are normal. Mild degenerative changes of the thoracic spine. Procedure Note Doreen Morales MD - 07/06/2025 CT CHEST HISTORY: worsening symptoms and pulmonary function , patient has ILD withpulmonary fibrosis reevaluate. TECHNIQUE: Chest CT was performed utilizing contiguous noncontrasted axialimages from the thoracic inlet to below the diaphragm. The images werereformatted in the coronal and sagittal planes. Radiation dosage is10.46mGy COMPARISON: CT chest from 12/26/2021 FINDINGS: Base of neck: The thyroid and base of the neck are within normal limits. Mediastinum: The heart is normal in size, no pericardial effusion. Mildatherosclerosis of the thoracic aorta. Subcentimeter lymph nodes withinthe mediastinal stations. Lungs: Evaluation of the lung parenchyma demonstrates no focalconsolidation or effusion. There is peripheral subpleural reticulationwithin the right lung and posterior left lower lobe. Faint groundglassattenuation within the subpleural posterior left lower lobe. The degree ofinterstitial changes are mildly improved within the posterior left lowerlobe and overall stable within the right lung. No evidence ofhoneycombing. No consolidative changes within the lung parenchyma. Upper Abdomen: Limited visualization of the extreme upper abdomendemonstrates the patient is status post cholecystectomy. MSK: Soft tissues are normal. Mild degenerative changes of the thoracicspine. IMPRESSION: Mild improvement in the subpleural reticulation within the posterior leftlower lobe. Stable subpleural reticulation within the right lung. Noevidence of honeycombing. -------- FINAL REPORT -------- Dictated By: Doreen Morales Dictated Date: 07/06/2025 14:14 ET Assigned Physician: Doreen Morales Reviewed and Electronically Signed By: Doreen Morales Signed Date: 07/06/2025 14:28 ET Workstation ID: [id number] Transcribed By: Self Edit Transcribed Date: 07/06/2025 14:14 ET us Karin Sevastyanova P[employer]EM[employer] IMG CT PROCEDURES Final Result * [id number], RSV, Influenza A and B qualitative RT-PCR (05/31/2025 11:57 AM EDT) SARS COV-2 Not Detected Not Detected LAB MOLECULAR DIAGNOSTICS METHOD 06/01/2025 10:22 AM EDT [facility] Comment: Disclaimer: The manner in which this information is used to guide patient care is the responsibility of the healthcare provider. Testing was performed using the [employer] m SARS-CoV-2 test. This test has been authorized by FDA under an Emergency Use Authorization (EUA). This test is only authorized for the duration of time the declaration that circumstances exist justifying the authorization of the emergency use of in vitro diagnostic tests for detection of SARS-CoV-2 virus and/or diagnosis of COVID-19 infection under section 564(b)(1) of the Act, 21 U.S.C. 360bbb- 3(b)(1), unless the authorization is terminated or revoked sooner. Fact sheet for Healthcare Providers can be found at: https://www.fda.gov/media/151686/download Fact sheet for Patients can be found at: https://www.fda.gov/media/915228/download Influenza A PCR Not Detected Not Detected LAB MOLECULAR DIAGNOSTICS METHOD 06/01/2025 10:22 AM EDT [facility] Influenza B PCR Not Detected Not Detected LAB MOLECULAR DIAGNOSTICS METHOD 06/01/2025 10:22 AM EDT [facility] RSV PCR Not Detected Not Detected LAB MOLECULAR DIAGNOSTICS METHOD 06/01/2025 10:22 AM EDT [facility] Swab Nasopharyngeal structure / Unknown Non-blood Collection / Unknown 05/31/2025 11:57 AM EDT 05/31/2025 11:57 AM EDT us Henry NORTON LAB MICROBIOLOGY - GENE RAL ORDERABLES Final Result [facility] [address] [place] [address], * XR Chest 2 Views (05/31/2025 11:56 AM EDT) Anatomical Region Laterality Modality Body Radiographic Yesenia ging 05/31/2025 6:15 PM EDT Impressions 05/31/2025 6:21 PM EDT No evidence of an acute chest process. POS - [id number] -------- FINAL REPORT -------- Dictated By: Deja Ward Dictated Date: 05/31/2025 18:15 ET Assigned Physician: Deja Ward Reviewed and Electronically Signed By: Deja Ward Signed Date: 05/31/2025 18:21 ET Workstation ID: [id number] Transcribed By: Self Edit Transcribed Date: 05/31/2025 18:15 ET Narrative 05/31/2025 6:21 PM EDT EXAM: Chest x-ray HISTORY: Cough. Evaluate for pneumonia. COMPARISON: 02/24/2024, 08/30/2023, and 07/22/2021, chest CT 12/26/2021 FINDINGS: PA and lateral views of the chest were performed. No infiltrate detected. No significant interval change in subpleural reticular opacities bilaterally which correspond with interstitial lung disease on the prior chest CT. Chronic blunting in the left costophrenic angle. No right pleural effusion. No evidence of pulmonary edema. Heart is normal in size. Mediastinal contours are stable. Mild degenerative changes in the spine. Procedure Note Deja Ward MD - 05/31/2025 EXAM: Chest x-ray HISTORY: Cough. Evaluate for pneumonia. COMPARISON: 02/24/2024, 08/30/2023, and 07/22/2021, chest CT 12/26/2021 FINDINGS: PA and lateral views of the chest were performed. No infiltrate detected. No significant interval change in subpleuralreticular opacities bilaterally which correspond with interstitial lungdisease on the prior chest CT. Chronic blunting in the left costophrenicangle. No right pleural effusion. No evidence of pulmonary edema. Heart isnormal in size. Mediastinal contours are stable. Mild degenerative changesin the spine. IMPRESSION: No evidence of an acute chest process. POS - [id number] -------- FINAL REPORT -------- Dictated By: Deja Ward Dictated Date: 05/31/2025 18:15 ET Assigned Physician: Deja Ward Reviewed and Electronically Signed By: Deja Ward Signed Date: 05/31/2025 18:21 ET Workstation ID: [id number] Transcribed By: Self Edit Transcribed Date: 05/31/2025 18:15 ET Henry NORTON IMG XR PROCEDURES Final Result * MG Mammo Digital Screening w Frandy bilat (03/26/2025 10:08 AM EDT) Anatomical Region Laterality Modality Breast Bilateral Mammography 03/26/2025 10:4 5 AM EDT Impressions 03/26/2025 2:22 PM EDT No mammographic evidence for malignancy. BI-RADS CATEGORY: 1 - NEGATIVE RECOMMENDATION: Screening bilateral mammogram is recommended in 1 year. Mammo Location: [facility], [address] [place] [address], [id number], . -------- FINAL REPORT -------- Dictated By: Alyssa Mann Dictated Date: 03/26/2025 10:45 ET Assigned Physician: Alyssa Mann Reviewed and Electronically Signed By: Alyssa Mann Signed Date: 03/26/2025 14:22 ET Workstation ID: [id number] Transcribed By: Self Edit Transcribed Date: 03/26/2025 10:59 ET Narrative 03/26/2025 2:22 PM EDT Bilateral screening mammogram. CLINICAL: 64 years old, Female, routine annual exam. COMPARISON: Prior studies, latest from 03/17/2024. TECHNIQUE: Bilateral MLO and CC views were obtained digitally with 2-D C views and 3-D mammogram (digital breast tomosynthesis). Computer-aided detection was utilized in evaluation of this exam (CAD). FINDINGS: There is no evidence of suspicious mass or architectural distortion. No worrisome calcifications are evident. There has been no significant change from prior exam(s). BREAST DENSITY: B - There are scattered areas of fibroglandular density. Procedure Note Alyssa Mann MD - 03/26/2025 Bilateral screening mammogram. CLINICAL: 64 years old, Female, routine annual exam. COMPARISON: Prior studies, latest from 03/17/2024. TECHNIQUE: Bilateral MLO and CC views were obtained digitally with 2-D Cviews and 3-D mammogram (digital breast tomosynthesis). Computer-aideddetection was utilized in evaluation of this exam (CAD). FINDINGS: There is no evidence of suspicious mass or architectural distortion. Noworrisome calcifications are evident. There has been no significantchange from prior exam(s). BREAST DENSITY: B - There are scattered areas of fibroglandular density. IMPRESSION: No mammographic evidence for malignancy. BI-RADS CATEGORY: 1 - NEGATIVE RECOMMENDATION: Screening bilateral mammogram is recommended in 1 year. Mammo Location: [facility], [address] [place] [address], [id number], . -------- FINAL REPORT -------- Dictated By: Alyssa Mann Dictated Date: 03/26/2025 10:45 ET Assigned Physician: Alyssa Mann Reviewed and Electronically Signed By: Alyssa Mann Signed Date: 03/26/2025 14:22 ET Workstation ID: [id number] Transcribed By: Self Edit Transcribed Date: 03/26/2025 10:59 ET us Juancarlos Stahl MD IMG BI PROCEDURES Final Result * Lipid panel with reflex to direct LDL (01/08/2025 8:11 AM EDT) Cholesterol 169 0 - 200 mg/dL LAB CHEMISTRY METHOD 01/08/2025 12:09 PM EDT [facility] Triglycerides 96 0 - 150 mg/dL LAB CHEMISTRY METHOD 01/08/2025 12:09 PM EDT [facility] HDL 57 >=40 mg/dL LAB CHEMISTRY METHOD 01/08/2025 12:09 PM EDT [facility] LDL Calculated 93 0 - 100 mg/dL LAB CHEMISTRY METHOD 01/08/2025 12:09 PM EDT [facility] VLDL Cholesterol Justin 19.2 mg/dL LAB CHEMISTRY METHOD 01/08/2025 12:09 PM EDT [facility] Non HDL Chol. (LDL+VLDL) 112 <145 mg/dL LAB CHEMISTRY METHOD 01/08/2025 12:09 PM EDT [facility] Chol/HDL Ratio 3.0 0.0 - 4.4 LAB CHEMISTRY METHOD 01/08/2025 12:09 PM EDT [facility] Blood Venous blood specimen / Unknown Venipuncture / Unknown 01/08/2025 8:11 AM EDT 01/08/2025 8:11 AM EDT Henry NORTON LAB BLOOD ORDERABLES Fi nal Result [facility] [address] [place] [address], * Depression Screening (11/15/2023) [facility] Depression Screening abstracted [facility] Provider HEALTH MAINTENANCE Final Result * Hepatitis C Screening (06/04/2021) [facility] Hepatitis C Screening abstracted [facility] Provider HEALTH MAINTENANCE Final Result * Colonoscopy (04/20/2016) [facility] Colonoscopy no interpretation , abstracted Anatomical Region Laterality Modality Other [facility] Provider HEALTH MAINTENANCE Final Result * HIV Screening (12/06/2014) [facility] HIV Screening abstracted [facility] Provider HEALTH MAINTENANCE Final Result * Cervical Cancer Screening: HPV (06/28/2012) [facility] Cervical Cancer Screening: HPV negative, abstracted us Historical Provider HEALTH MAINTENANCE Final Result from Last 3 Months or Most Recently Relevant to Health Maintenance Insurance [facility] [employer] Care Teams Government Employee Relationship Specialty Start Date End Date Juancarlos Stahl MD [address] [place] [phone] PCP - General Internal Medicine 08/11/24
--- OUTSIDE RECORDS SUMMARY | 2025-07-19 15:20 | XMS_ITS ---
Author Name [facility] Organization Unknown Care Team Organization Name Specialty Phone Email Start Date End Da te [facility] MARLINE HENDRICKSON Primary Care 08/04/2022 4
== END 2025-07-19 13:25 | disposition home or self-care (01) ==
PROVIDERS: Physician Assistant Medical; Emergency Provider Emergency Medicine; PCP Internal Medicine
DX: M10.072 Idiopathic gout, left ankle and foot (principal); R60.0 Localized edema; M79.672 Pain in left foot; Z79.899 Other long term (current) drug therapy
CPT/HCPCS: 36415; 73630; 80053; 84550; 85025; 85652; 86140; 99283

== ENCOUNTER → 2025-07-19 11:32 | Outpatient (BNV) | payer OTHER, SELFPAY | PROVIDERS: Emergency Provider Emergency Medicine; PCP Internal Medicine; Visit Provider Radiology Diagnostic Radiology | DX: M19.072 Primary osteoarthritis, left ankle and foot (principal) | CPT/HCPCS: 73630 ==

== ENCOUNTER 2025-08-27 15:40 | Emergency (ER) | payer OTHER, SELFPAY ==
--- NOTE | 2025-08-27 15:54 | ED.GENADULT ---
HPI - General Adult General Chief complaint: Back Pain/Injury Stated complaint: Back Pain Time Seen by Provider: 08/27/25 15:58 Source: patient, RN notes reviewed and old records reviewed Mode of arrival: ambulatory Limitations: no limitations History of Present Illness ED Provider: Thierno HPI narrative: Patient is a 64 year old female with history of carotid artery stenosis, lumbar ankylosing spondylitis, IBS, HLD, Bipolar 1 disorder, depression presenting with complaint of right lower back pain for the past 5 days. Denies fall or other trauma. Denies saddle anesthesia or bowel or bladder incontinence. Denies fevers. Denies history of IV drug use. States pain radiates to right thigh. Has been taking ibuprofen at home with little relief. Denies any urinary symptoms. MD complaint: back pain Related Data Home Medications ?Medication ?Instructions ?Recorded ?Confirmed albuterol sulfate 90 mcg/actuation 1 inh inhalation Q4-6H PRN 09/16/23 breath activated powder inhaler aspirin 81 mg chewable tablet 81 mg PO DAILY 09/16/23 atorvastatin 40 mg tablet 40 mg PO DAILY 09/16/23 azelastine 205.5 mcg (0.15 %) 1 spray intranasal BEDTIME 09/16/23 nasal spray cetirizine 10 mg chewable tablet 10 mg PO DAILY 09/16/23 dextromethorphan-guaifenesin 5 10 ml PO Q4-8H PRN 09/16/23 mg-100 mg/5 mL oral liquid fluoxetine 20 mg capsule 20 mg PO DAILY 09/16/23 fluticasone furoate 100 1 inh inhalation DAILY 09/16/23 mcg-vilanterol 25 mcg/dose inhalation powder gabapentin 300 mg capsule 300 mg PO BID 09/16/23 guaifenesin 600 mg tablet, 600 mg PO BID 09/16/23 extended release 12 hr (Mucinex) lorazepam 1 mg tablet 1 mg PO DAILY PRN 09/16/23 montelukast 10 mg tablet 10 mg PO DAILY 09/16/23 (Singulair) triamcinolone acetonide 55 mcg 1 spray intranasal DAILY 09/16/23 nasal spray aerosol umeclidinium 62.5 mcg-vilanterol 1 inh inhalation DAILY 09/16/23 25 mcg/actuation powdr for inhalation zolpidem 10 mg tablet 10 mg PO BEDTIME 09/16/23 Previous Rx's ?Medication ?Instructions ?Recorded colchicine 0.6 mg tablet See Rx Instructions .Route 03/09/21 .COMPLEX #6 tabs naproxen 500 mg tablet 500 mg PO BID #20 tabs 03/09/21 hydrocodone 5 mg-acetaminophen 325 1 tab PO Q6H PRN pain #12 tabs 04/19/21 mg tablet ondansetron 4 mg disintegrating 4 mg PO Q8H PRN nausea and 04/19/21 tablet vomiting #20 tabs carbamazepine 200 mg 200 mg PO BID #60 tabs 09/16/23 tablet,extended release,12 hr hydrocodone 5 mg-acetaminophen 325 1 tab PO Q6H PRN pain #10 tabs 07/19/25 mg tablet prednisone 20 mg tablet 40 mg (2 x 20 mg) PO DAILY 4 days 07/19/25 #8 tabs cyclobenzaprine 5 mg tablet 5 mg PO TID PRN muscle spasm #10 08/27/25 tabs lidocaine 5 % topical patch 1 patch topical DAILY #15 ea 08/27/25 prednisone 10 mg tablet See Rx Instructions .Route 08/27/25 .COMPLEX #15 tabs Allergies Allergy/AdvReac Type Severity Reaction Status Date / Time morphine (MORPHINE) Allergy Unknown UNKNOWN Verified 08/27/25 15:57 meloxicam Allergy Mild Rash Uncoded 08/27/25 15:57 Review of Systems Review of Systems: As per HPI Yes all other systems are reviewed and are negative Constitutional: Constitutional: Reports as per HPI [facility] Past Medical History Medical History Hyperlipidemia Depression Bipolar 1 disorder Left shoulder pain IBS (irritable bowel syndrome) Neck pain Attention and concentration deficit Ankylosing spondylitis lumbar region Carotid artery stenosis Facial pain, atypical Gout Foot fracture Anxiety Surgical History Hx of cholecystectomy Previous section Social History Social History Alcohol intake: never Patient Tobacco Use Status: Never used Tobacco Advance Directives: No Advance Directives Information Provided: Yes Do you have a plan to hurt others: No Plan Physical Exam ED Vital Signs: Vital Signs - 24 hr 08/27/25 15:55 08/27/25 16:19 Temperature 98 F 98 F Pulse Rate 74 74 Respiratory Rate 18 18 Blood Pressure 128/60 128/60 Pulse Oximetry 98 98 BMI result Body Mass Index 29.3 Vital signs have been reviewed and appear to be correct. Blood pressure normal. Heart rate normal. Respiratory rate normal. Temperature normal. Oxygen saturation normal. Const General: cooperative, healthy appearing and no acute distress Orientation/consciousness: oriented to person, oriented to place, oriented to time and patient oriented x3 Limitations: no limitations HENMT Head: Yes normocephalic and Yes atraumatic Ears: external ears normal General nose exam: Normal external nose present Face and sinus: Yes face symmetric Mouth: oropharynx normal and moist mucous membranes Throat: Yes uvula midline Eyes Pupils: Equal, round and reactive pupils present Neck Neck: Yes normal visual inspection, Yes no meningeal signs and Yes supple Resp Effort & Inspection: normal respiratory effort and able to speak in complete sentences Auscultation: clear to auscultation bilaterally Cardio Rate: regular rate Rhythm: regular rhythm Heart sounds: S1 normal heart sound present and S2 normal heart sound present GI Palpation (GI): Soft to palpation and nontender Auscultation: normoactive bowel sounds General: Yes no CVA tenderness Back/Spine/Pelvis Back: no CVA tenderness Thoracic/Lumbar Spine: thoracic and lumbar spine normal to inspection, thoraco-lumbar ROM normal, straight leg raise negative bilaterally, pain with thoraco-lumbar ROM, No thoracic spinal tenderness and No lumbar spinal tenderness Pelvis: no pain with anterior-posterior compression and no pain with lateral compression Sacroiliac joints: bilaterally nontender Skin General skin exam: elasticity normal and turgor normal Neuro General: oriented to person, oriented to place, oriented to time, patient oriented x3, gait normal, tone normal, moves all extremities, Normal light touch and pain sensation, no meningeal signs, no focal motor deficits, CN's II-XI intact bilaterally and deep tendon reflexes 2+ bilaterally Cranial nerves: Yes Equal, round and reactive pupils present Cognition (Neuro): normal cognition Motor exam (neuro): 5/5 motor strength present throughout, Normal motor muscle tone present throughout and Motor abnormalities not present Extrem General: Yes full ROM, Yes no pedal edema and Yes no calf tenderness Psych Mental Status: mental status grossly normal Affect: normal affect Thought process: Normal thought process present Medical Decision Making Medical Decision Making MDM Narrative: Patient is a 64 year old female with history of carotid artery stenosis, lumbar ankylosing spondylitis, IBS, HLD, Bipolar 1 disorder, depression presenting with complaint of right lower back pain for the past 5 days. On exam patient is awake, A+Ox3, VS WNL, afebrile, normal neurological exam without focal deficits, physical exam findings as above. Given reported symptoms and physical exam findings, initial differential includes but is not limited to initial differential includes lumbar strain, lumbar radiculopathy, degenerative disc disease, disc herniation, spinal stenosis, spondylosis. Less likely vertebral fracture. Do not suspect malignancy/mass, SEA, cauda equina/cord compression. Imaging not indicated as patient denies any trauma. Will discharge home on prednisone taper, cyclobenzaprine and lidocaine patches. Advised follow up with PCP. Return precautions discussed. Patient verbalized understanding of and agreement with plan. Differential Diagnosis Differential Diagnoses: The differential diagnosis associated with the presentation includes as per [facility] Admission/Observation Consideration of admission/observation: Escalation of care including admission/observation considered Patient would have been admitted to the hospital and transferred to appropriate facility had their clinical presentation warranted hospital admission. External Record Review External record reviewed: Inpatient record, Office record and Outpatient record Prescription Management I considered prescription management with: Pain Medication and Other Discharge Plan Discharge Clinical Impression: Lumbar radiculopathy Patient Disposition: Home, Self-Care Instructions: Lumbar Radiculopathy (ED) Additional Instructions: You were evaluated in the emergency department today for lower back pain. This is likely due to an inflammation of the sciatic nerve with runs from the lower back down both legs. You are being prescribed a course of prednisone which is a steroid to decrease inflammation. You are also being prescribed cyclobenzaprine which is a muscle relaxer. Do not take this medication in combination with alcohol as it can cause excessive drowsiness. You have been prescribed 5% topical lidocaine patches which you can wear for up to 12 hours in a 24 hour period. Do not apply heat directly over the patches. Use all medications as prescribed. Please schedule an appointment for follow-up with your primary care physician this week for further evaluation of your symptoms. Return to the emergency department if you experience worsening back pain, difficulty walking, fevers, numbness, tingling, incontinence, groin numbness or tingling, or any other concerning symptoms. Prescriptions: New prednisone 10 mg tablet See Rx Instructions .ROUTE .COMPLEX Qty: 15 0RF Rx Instructions: 50mg (5 tabs) x1 day, then 40 mg (4 tabs) x1 day, then 30 mg (3 tabs) x1 day, then 20 mg (2 tabs) times 1 day, then 10 mg (1 tab) x1 day cyclobenzaprine 5 mg tablet 5 mg PO TID PRN (Reason: muscle spasm) Qty: 10 0RF lidocaine 5 % adhesive patch,medicated 1 patch topical DAILY Qty: 15 0RF Rx Instructions: leave on most painful area for up to 12 hrs No Action colchicine 0.6 mg tablet See Rx Instructions .ROUTE .COMPLEX Qty: 6 0RF Rx Instructions: Take 2 tabs NOW then 1 tab an hour later. If still symptomatic in 3 days, repeat regimen naproxen 500 mg tablet 500 mg PO BID Qty: 20 0RF hydrocodone-acetaminophen 5-325 mg tablet 1 tab PO Q6H PRN (Reason: pain) Qty: 12 0RF ondansetron 4 mg tablet,disintegrating 4 mg PO Q8H PRN (Reason: nausea and vomiting) Qty: 20 0RF hydrocodone-acetaminophen 5-325 mg tablet 1 tab PO Q6H PRN (Reason: pain) Qty: 10 0RF Rx Instructions: partial fill okay; Partial Fill upon patient request. prednisone 20 mg tablet 40 mg PO DAILY 4 Days Qty: 8 0RF atorvastatin 40 mg tablet 40 mg PO DAILY aspirin 81 mg tablet,chewable 81 mg PO DAILY cetirizine 10 mg tablet,chewable 10 mg PO DAILY zolpidem 10 mg tablet 10 mg PO BEDTIME lorazepam 1 mg tablet 1 mg PO DAILY PRN gabapentin 300 mg capsule 300 mg PO BID albuterol sulfate 90 mcg/actuation aerosol powdr breath activated 1 inh inhalation Q4-6H PRN fluticasone furoate-vilanterol 100-25 mcg/dose blister with device 1 inh inhalation DAILY triamcinolone acetonide 55 mcg aerosol,spray 1 spray intranasal DAILY Rx Instructions: administer into each nostril montelukast [Singulair] 10 mg tablet 10 mg PO DAILY azelastine 205.5 mcg (0.15 %) spray,non-aerosol 1 spray intranasal BEDTIME Rx Instructions: administer into each nostril dextromethorphan-guaifenesin 5-100 mg/5 mL liquid 10 ml PO Q4-8H PRN carbamazepine 200 mg tablet extended release 12 hr 200 mg PO BID Qty: 60 6RF umeclidinium-vilanterol 62.5-25 mcg/actuation blister with device 1 inh inhalation DAILY fluoxetine 20 mg capsule 20 mg PO DAILY guaifenesin [Mucinex] 600 mg tablet extended release 12hr 600 mg PO BID Interventions: ED Discharge Assessment Last Done: 08/27/25 16:19 Discharge Date/Time: 08/27/25 16:20 Print Language: Venezuelan
[2025-08-27 15:55] VITALS: BP 128/60; PULSE 74; RESP 18; TEMP 36.6; O2SAT 98; BMI 29.3
[2025-08-27 16:19] VITALS: BP 128/60; PULSE 74; RESP 18; TEMP 36.6; O2SAT 98
--- OUTSIDE RECORDS SUMMARY | 2025-08-27 18:37 | XMS_ITS | Encounter Summary ---
Author Organization [facility] Address [address] [place] [address] Care Team Providers Care Fire Extinguisher Mechanic Name Role Phone Juancarlos Stahl MD Primary Care Provider [phone] Reason for Visit * Reason Onset Date Comments Fitting for DME 07/16/2025 Encounter Details Date Type Department Care Team ([facility] Contact Info) Description 07/16/2025 Telephone Adult Medicine [address] [phone] Juancarlos Stahl MD [address] [place] [phone] Social History Tobacco Use Types Packs/Day Years Used Date Smoking Tobacco: Former Cigarettes 0 Q uit: 03/27/1992 Passive Smoke Exposure: Past [...] as of this encounter Progress Notes * Dilan Hanley MA - 08/22/2025 1:20 PM EST Additional orders received. To PCP for sig * Dilan Hanley MA - 08/02/2025 10:20 AM EST Orders faxed to [facility] [employer] [facility] [employer]. * Dilan Hanley MA - 07/21/2025 12:20 PM EDT Will have PCP discuss at 07/25/2025 ov * Latoya Leone - 07/16/2025 2:58 PM EDT DME REQUEST [...] requested before When completed: Fax to Latoya [phone] Who is requested? [facility] Is this a fax request? Have you told the patient it will take 7-10 days for completion of this request? Yes documented in this encounter Plan of Treatment Upcoming Encounters Date Type Department Care Team (Late st Contact Info) Description 08/30/2025 10:35 AM EST Office Visit Pulmonology - [place] [address] [facility] [address] [place] [phone] Karin Ac NP [address] [place] [address] 01/23/2026 9:30 AM EDT Office Visit Adult Medicine [address] [phone] Henry Cespedes PA [address] [place], [place] documented as of this encounter Visit Diagnoses Diagnosis Fibromyalgia- Primary Unspecified myalgia and myositis Mid back pain on right side Ankylosing spondylitis of lumbosacral region (CMS/[facility] V24, [facility] V28) documented in this encounter Orders General Supply Count Last Ordered Date First Or dered Date COMMODE CHAIR 1 08/02/2025 documented in this encounter Care Teams Fire Extinguisher Mechanic Relationship Specialty Start Date End Date Juancarlos Stahl MD [address] [place] [phone] PCP - General Internal Medicine 08/11/24 documented as of this encounter
--- OUTSIDE RECORDS SUMMARY | 2025-08-27 18:37 | XMS_ITS | Encounter Summary ---
Author Organization [facility] Address [address] [place] [address] Care Team Providers Care Stamping Bench Die Maker Name Role Phone Juancarlos Stahl MD Primary Care Provider [phone] Encounter Details Date Type Department Care Team ([facility] Contact Info) Description 07/06/2025 Results Follow-Up Pul[address] [phone] Karin Ac NP [address] [place] [phone] Social History Tobacco Use Types Packs/Day Years [...] Encounters Date Type Department Care Team (Late Contact Info) Description 08/30/2025 10:35 AM EST Office Visit Pulmonology [facility] [address] [facility] [address] [place] [address] Karin Ac NP [address] [place] [address] 01/23/2026 9:30 AM EDT Office Visit Adult Medicine [address], [place] [phone] Henry Cespedes PA [address] [place], [place] documented as of this encounter Visit Diagnoses Not on filedocumented in this encounter Care Teams Stamping Bench Die Maker Relationship Specialty Start Date End Date Juancarlos Stahl MD [address] [place] [address] PCP - General Internal Medicine 08/11/24 documented as of this encounter
--- OUTSIDE RECORDS SUMMARY | 2025-08-27 18:37 | XMS_ITS | Encounter Summary ---
Author Organization [facility] Address [address] [place] [address] Care Team Providers Care Manufacturing Analyst Name Role Phone Juancarlos Stahl MD Primary Care Provider [phone] Encounter Details Date Type Department Care Team ([facility] Contact Info) Description 07/26/2025 Results Follow-Up Adult Medicine [address] [phone] Juancarlos Stahl MD [address] [place] [address] Social History Tobacco Use Types Packs/Day Years [...] 10:35 AM EST Office Visit Pulmonology - [address] [place] [address] Karin Ac NP [address] [place] [phone] 01/23/2026 9:30 AM EDT Office Visit Adult Medicine [address], [place] [phone] Henry Cespedes PA [address] [place], [place] documented as of this encounter Visit Diagnoses Not on filedocumented in this encounter Care Teams Manufacturing Analyst Relationship Specialty Start Date End Date Juancarlos Stahl MD [address] [place] [address] PCP - General Internal Medicine 08/11/24 documented as of this encounter
--- OUTSIDE RECORDS SUMMARY | 2025-08-27 18:38 | XMS_ITS | Clinical Summary ---
Author Organization [facility] Address [address] [place] [address] Phone Care Team Providers Care Elementary Librarian Name Role Phone Juancarlos Stalh MD Primary Care Provider [phone] Allergies Active Allergy Reactions Criticality Noted Date Comments Meloxicam Other 07/29/2021 Myalgia and Joint Pain;Neck stiffness/numbness Morphine 03/11/2016 Chest pain Medications cetirizine (ZyrTEC) 10 mg tablet Take 1 tablet (10 mg total) by mouth 1 (one) time each day. 4 Active omeprazole OTC (PriLOSEC OTC) 20 mg EC tablet Take 1 tablet (20 mg total) by mouth 1 (one) time each day. 4 Active azelastine 205.5 mcg (0.15 %) spray,non-aeroso l Administer 0.15 % into affected nostril(s) 1 (one) time each day. 3 Active buPROPion XL (WELLBUTRIN XL) 150 mg 24 hr tablet Take 1 tablet (150 mg total) by mouth 1 (one) time each day. Active carBAMazepine XR (Tegretol XR) 200 mg 12 hr tablet Take 1 tablet (200 mg total) by mouth 2 (two) times a day. 3 Active FLUoxetine (PROzac) 20 mg capsule Take 1 capsule (20 mg total) by mouth 1 (one) time each day in the morning. 2 Active LORazepam (ATIVAN) 1 mg tablet Take 1 tablet (1 mg total) by mouth 2 (two) times a day. Active zolpidem (Ambien) 10 mg tablet Take 1 tablet (10 mg total) by mouth. 0 Active aspirin 81 mg EC tablet Take 1 tablet (81 mg total) by mouth 1 (one) time each day. 2 Active polyethylene glycol (MIRALAX) 17 gram packet Take 17 g by mouth if needed for constipation. 30 packet 1 5 Active Additional Information Patient not taking.Reported on 07/25/2025 gabapentin (NEURONTIN) 100 mg capsule Take 1 capsule (100 mg total) by mouth 3 (three) times a day. 270 capsule 1 5 Active diclofenac (VOLTAREN) 1 % topical gel APPLY 2 GRAM FOUR TIMES DAILY TO AFFECTED JOINT 100 g 1 5 Active omeprazole (PriLOSEC) [address] capsule TAKE 1 CAPSULE BY MOUTH EVERY DAY 90 capsule 1 5 Active montelukast (SINGULAIR) 10 mg tabletIndication s:Chronic obstructive pulmonary disease, unspecified COPD type (CMS/HCC V24, CMS/HCC V28),Moderate persistent asthma without complication Take 1 tablet (10 mg total) by mouth at bedtime. 90 each 3 5 03/24/20 26 Active benzonatate (TESSALON) 100 mg capsuleIndicatio ns:Chronic obstructive pulmonary disease, unspecified COPD type (CMS/HCC V24, CMS/HCC V28),Moderate persistent asthma without complication,For sujatha smoker Take 1 capsule (100 mg total) by mouth 3 (three) times a day if needed for cough. Do not crush or chew. 30 capsule 3 5 Active Ventolin HFA 90 mcg/actuation inhalerIndicatio ns:Interstitial lung disease (CMS/HCC V24, CMS/HCC V28),Moderate persistent asthma without complication INHALE 2 PUFFS BY MOUTH EVERY 6 HOURS NEEDED FOR WHEEZE 18 each 3 5 Active naproxen (NAPROSYN) 500 mg tablet TAKE 1 TABLET BY MOUTH TWICE A DAY WITH MEALS 180 tablet 1 5 Active ibuprofen (ADVIL,MOTRIN) 800 mg tablet TAKE 1 TABLET BY MOUTH EVERY 8 HOURS NEEDED FOR PAIN 270 tablet 1 5 Active Symbicort 160-4.5 mcg/actuation inhalerIndicatio ns:Chronic obstructive pulmonary disease, unspecified COPD type ([facility] V24, [facility] V28),Moderate persistent asthma without complication Inhale 2 puffs by mouth 2 (two) times a day. Rinse mouth with water after use to reduce aftertaste and incidence of candidiasis. Do not swallow. 10.6 g 2 5 Active atorvastatin (LIPITOR) 40 mg tablet TAKE 1 TABLET BY MOUTH EVERYDAY AT BEDTIME 90 tablet 1 5 Active Active Problems Problem Noted Date Diagnosed Date [...] though. Ankylosing spondylitis of marcela mbosacral region ([facility] V24, [facility] V28) 08/03/2019 Overview (09/21/2024): 08/15- sacroiliitis on lumbar xray, Attention and concentration deficit 04/10/2019 Chronic left shoulder pain 01/27/2019 Myofascial pain on left side 01/27/2019 Neck pain on left side 01/27/2019 Trigeminal neuralgia of left side of face 2017 IBS (irritable bowel syndrome) 10/28/2017 Bipolar disorder ([facility] V24, [facility] V28) 10/28 Depression 04/18/2012 Hypercholesterolemia 04/18/2012 Encounters Date Type Department Care Team Description 07/26/2025 Results Follow-Up Adult Medicine [address] [phone] Juancarlos Stahl MD 07/25/2025 10:25 AM EDT Lab Draw Station [address] Encounter for long-term (current) use of medications; Hypercholesterolemia; Prediabetes 07/25/2025 9:45 AM EDT Office Visit [address] [phone] Juancarlos Stahl MD Hypercholesterolemia (Primary Dx); Prediabetes; Fibromyalgia; Encounter for long-term (current) use of medications; Trigeminal neuralgia of left side of face; Gout, unspecified cause, unspecified chronicity, unspecified site; Gastroesophageal reflux disease, unspecified whether esophagitis present; Bipolar affective disorder, remission status unspecified ([facility] V24, [facility] V28) 07/19/2025 Nurse Triage [address] [phone] Juancarlos Stahl MD 07/16/[address] [phone] Juancarlos Stahl MD 07/06/2025 10:00 AM EDT - 07/06/2025 11:59 PM EDT Hospital Encounter CT Scan [address] [phone] Interstitial lung disease ([facility] V24, [facility] V28); Pulmonary fibrosis ([facility] V24, [facility] V28) Discharge Disposition: Home or Self Care 07/06/2025 Results Follow-Up Pulmonology - [place] [address] [phone] Karin Ac NP 06/29/2025 11:50 AM EDT Office Visit Pulmonology [address] [phone] Karin Ac NP Chronic obstructive pulmonary disease, unspecified COPD type ([facility] V24, [facility] V28); Moderate persistent asthma without complication; Interstitial lung disease ([facility] V24, [facility] V28); Pulmonary fibrosis ([facility] V24, [facility] V28) 05/31/2025 11:51 AM EDT - 05/31/2025 11:59 PM EDT Hospital Encounter [address] [phone] Acute cough; Upper back pain Discharge Disposition: Home or Self Care 05/31/2025 11:30 AM EDT Office Visit Adult Medicine [address] [phone] Henry Cespedes PA Acute cough (Primary Dx); Upper back pain; Moderate persistent asthma without complication 05/29/2025 Telephone Adult Medicine [address] [phone] Juancarlos Stahl MD from Last 3 Months [...] Date Comments Gallstone 07/20/2012 DX:Gallstone Bipolar disorder ([facility] V24, [facility] V28) 11/14 IBS (irritable bowel syndrome) 10/28/2017 [...] Sign Reading Time Taken Comments Blood Pressure 114/72 07/25/2025 9:52 AM EDT Pulse 76 07/25/2025 9:52 AM EDT Temperature 36.5 C (97.7 F) 07/25/2025 9:52 AM EDT Respiratory Rate 14 07/25/2025 9:52 AM EDT Oxygen Saturation 97% 07/25/2025 9:52 AM EDT Inhaled Oxygen Concentration - - Weight 68.5 kg (151 lb) 07/25/2025 9:52 AM EDT Height 152.4 cm (5') 07/25/2025 9:52 AM EDT Body Mass Index 29.49 07/25/2025 9:52 AM EDT Plan of Treatment Upcoming Encounters Date Type Department Care Team (Late st Contact Info) Description 08/30/2025 10:35 AM EST Office Visit Pulmonology - [facility] [address] [place] [phone] Karin Ac NP [address] [place] [phone] 01/23/2026 9:30 AM EDT Office Visit Adult Medicine [address] [phone] Henry Cespedes PA [address] [place] [address] Health Maintenance Due Date Last Done Comments Pneumococcal Vaccine: 50+ Years (1 of 2 - PCV) 12/28/1979 RSV Immunization Adult Patients (1 - Risk 50-74 years 1-dose series) 2010 Zoster Vaccines (1 of 2) 2010 Cervical Cancer Screening: Pap Smear 06/28/2015 06/28/2012 DTaP,Tdap,and Td Vaccines (2 - Td or Tdap) 05/12/2022 05/12/2012 Social Influencers of Health Screening 09/05/2022 Depression Screening 09/27/2024 11/15/2023 COVID-19 Vaccine (3 - season) 2025 02/14/2021, 01/24/2021 Influenza Vaccine (#1) 2025 Colorectal Cancer Screening: Colonoscopy 04/20/2026 04/20/2016 Breast Cancer Screening 03/26/2027 03/26/20, 03/17/2024, 03/17/2024, Additional history exists Cholesterol Screening (Lipid Panel) 07/25/2030 07/25/2025, 01/08/2025, 07/06/2024, Additional history exists HIV Screening Completed [...] Procedure Name Priority Date/Time Associated Diagnosis Comments HEMOGLOBIN A1C Routine 07/25/2025 10:30 AM EDT Prediabetes LIPID PANEL WITH REFLEX TO DIRECT LDL Routine 07/25/2025 10:30 AM EDT Hypercholesterolemi a COMPREHENSIVE METABOLIC PANEL Routine 07/25/2025 10:30 AM EDT Encounter for long-term (current) use of medications CT CHEST WO CONTRAST Routine 07/06/2025 11:24 AM EDT Interstitial lung disease (CMS/HCC V24, CMS/HCC V28) Pulmonary fibrosis (CMS/HCC V24, CMS/HCC V28) [id number], RSV, FLU A AND B QUALITATIVE RT-PCR, LOCAL REFERENCE LAB Routine 05/31/2025 11:57 AM EDT Acute cough XR CHEST 2 VIEWS Routine 05/31/2025 11:5 6 AM EDT Acute cough Upper back pain MG MAMMO DIGITAL SCREENING W FRANDY BILAT Routine 03/26/2025 10:08 AM EDT Encounter for screening mammogram for breast cancer DEPRESSION SCREENING Routine 11/15/2023 HEPATITIS C SCREENING Routine 06/04/2021 COLONOSCOPY Routine 04/20/2016 HIV SCREENING Routine 12/06/2014 PAP SMEAR Routine 06/28/2012 from Last 3 Months or Most Recently Relevant to Health Maintenance Results * Lipid panel with reflex to direct LDL (07/25/2025 10:30 AM EDT) Cholesterol 164 0 - 200 mg/dL LAB CHEMISTRY METHOD 07/25/2025 3:05 PM EDT [facility] Triglycerides 110 0 - 150 mg/dL LAB CHEMISTRY METHOD 07/25/2025 3:05 PM EDT [facility] HDL 63 >=40 mg/dL LAB CHEMISTRY METHOD 07/25/2025 3:05 PM EDT [facility] LDL Calculated 79 0 - 100 mg/dL LAB CHEMISTRY METHOD 07/25/2025 3:05 PM EDT [facility] Comment:Estimated LDL Calcul ated using equation: Total cholesterol - HDL cholesterol - (Triglycerides/5) VLDL Cholesterol Justin 22 mg/dL LAB CHEMISTRY METHOD 07/25/2025 3:05 PM EDT [facility] Non HDL Chol. (LDL+VLDL) 101 <145 mg/dL LAB CHEMISTRY METHOD 07/25/2025 3:05 PM EDT [facility] Chol/HDL Ratio 2.6 0.0 - 4.4 LAB CHEMISTRY METHOD 07/25/2025 3:05 PM EDT [facility] Blood Venous blood specimen / Unknown Venipuncture / Unknown 07/25/2025 10:30 AM EDT 07/25/2025 10:30 AM EDT us Juancarlos Stahl MD LAB BLOOD ORDERABLES Final Resu lt [facility] [address] [place] [address], * Hemoglobin A1c (07/25/2025 10:30 AM EDT) Hemoglobin A1C 5.9 <6.5 % LAB CHEMISTRY METHOD 07/25/2025 1:11 PM EDT [facility] Mean Bld Glu Estim. 123 mg/dL LAB CHEMISTRY METHOD 07/25/2025 1:11 PM EDT [facility] Blood Venous blood specimen / Unknown Venipuncture / Unknown 07/25/2025 10:30 AM EDT 07/25/2025 10:30 AM EDT us Juancarlos Stahl MD LAB BLOOD ORDERABLES Final Resu lt [facility] [address] [place] [address], [place] [phone] * (ABNORMAL) Comprehensive metabolic panel (07/25/2025 10:30 AM EDT) Sodium 143 133 - 145 mmol/L LAB CHEMISTRY METHOD 07/25/2025 3:05 PM [facility] Potassium 3.7 3.5 - 5.5 mmol/L LAB CHEMISTRY METHOD 07/25/2025 3:05 PM [facility] Chloride 108 96 - 110 mmol/L LAB CHEMISTRY METHOD 07/25/2025 3:05 PM [facility] CO2 28 21 - 32 mmol/L LAB CHEMISTRY METHOD 07/25/2025 3:05 PM [facility] Anion Gap 7 3 - 11 LAB CHEMISTRY METHOD 07/25/2025 3:05 PM [facility] Glucose 82 70 - 100 mg/dL LAB CHEMISTRY METHOD 07/25/2025 3:05 PM [facility] BUN 25 5 - 25 mg/dL LAB CHEMISTRY METHOD 07/25/2025 3:05 PM [facility] Creatinine 0.73 0.50 - 1.10 mg/dL LAB CHEMISTRY METHOD 07/25/2025 3:05 PM [facility] eGFR 92 >=60 mL/min/1. 73m2 LAB CHEMISTRY METHOD 07/25/2025 3:05 PM [facility] Comment:Calculation based on the Chronic Kidney Disease Epidemiology Collaboration (CKD-EPI) equation refit without adjustment for race. BUN/Creatinine Ratio 34.2 LAB CHEMISTRY METHOD 07/25/2025 3:05 PM [facility] Calcium 8.9 8.5 - 10.5 mg/dL LAB CHEMISTRY METHOD 07/25/2025 3:05 PM [facility] AST (SGOT) 22 10 - 42 unit/L LAB CHEMISTRY METHOD 07/25/2025 3:05 PM EDT [facility] ALT (SGPT) 47 10 - 60 unit/L LAB CHEMISTRY METHOD 07/25/2025 3:05 PM EDT [facility] Alkaline Phosphatase 122(H) 42 - 121 unit/L LAB CHEMISTRY METHOD 07/25/2025 3:05 PM EDT [facility] Total Protein 6.7 6.0 - 8.0 g/dL LAB CHEMISTRY METHOD 07/25/2025 3:05 PM EDT [facility] Albumin 3.6 3.2 - 5.0 g/dL LAB CHEMISTRY METHOD 07/25/2025 3:05 PM EDT [facility] Total Bilirubin 0.4 0.0 - 1.4 mg/dL LAB CHEMISTRY METHOD 07/25/2025 3:05 PM EDT [facility] Blood Venous blood specimen / Unknown Venipuncture / Unknown 07/25/2025 10:30 AM EDT 07/25/2025 10:30 AM EDT us Juancarlos Stahl MD LAB BLOOD ORDERABLES Final Resu lt [facility] [address] [place] [address], [place] [phone] * CT Chest wo Contrast (07/06/2025 11:24 [...] Signed Date: 07/06/2025 14:28 ET Workstation ID: [id number] Transcribed By: Self Edit Transcribed Date: 07/06/2025 [...] Signed Date: 07/06/2025 14:28 ET Workstation ID: [id number] Transcribed By: Self Edit Transcribed Date: 07/06/2025 14:14 ET us Karin Ac RISK AND INSURANCE MANAGER IMG CT PROCEDURES Final Result * [id number], RSV, Influenza A and B qualitative RT-PCR (05/31/2025 11:57 AM EDT) SARS COV-2 Not Detected Not Detected LAB MOLECULAR DIAGNOSTICS METHOD 06/01/2025 10:22 AM EDT [facility] Comment: Disclaimer: The manner in which this information is used to guide patient care is the responsibility of the healthcare provider. Testing was performed using the [employer] Alinity m SARS-CoV-2 test. This test has [...] for Healthcare Providers can be found at: https://www.fda.gov/media/915486/download Fact sheet for Patients can be found at: https://www.fda.gov/media/460255/download Influenza A PCR Not Detected Not Detected LAB MOLECULAR DIAGNOSTICS METHOD 06/01/2025 10:22 AM EDT [facility] Influenza B PCR Not Detected Not Detected LAB MOLECULAR DIAGNOSTICS METHOD 06/01/2025 10:22 AM EDT [facility] RSV PCR Not Detected Not Detected LAB MOLECULAR DIAGNOSTICS METHOD 06/01/2025 10:22 AM EDT [facility] Swab Nasopharyngeal structure / Unknown Non-blood Collection / Unknown 05/31/2025 11:57 AM EDT 05/31/2025 11:57 AM EDT us Henry NORTON LAB MICROBIOLOGY - GENE RAL ORDERABLES Final Result [facility] [address] [place] [address], [place] [phone] * XR Chest 2 Views (05/31/2025 11:56 AM EDT) Anatomical Region Laterality Modality Body Radiographic Yesenia ging 05/31/2025 6:15 PM EDT Impressions 05/31/2025 6:21 PM EDT No evidence of an acute chest process. POS - [id number] -------- FINAL REPORT -------- Dictated By: Deja Ward Dictated Date: 05/31/2025 18:15 ET Assigned Physician: Deja Ward Reviewed and Electronically Signed By: Deja Ward Signed Date: 05/31/2025 18:21 ET Workstation ID: [id number] Transcribed By: Self Edit Transcribed Date: 05/31/2025 [...] of an acute chest process. POS - [id number] -------- FINAL REPORT -------- Dictated By: Deja Ward Dictated Date: 05/31/2025 18:15 ET Assigned Physician: Deja Ward Reviewed and Electronically Signed By: Deja Ward Signed Date: 05/31/2025 18:21 ET Workstation ID: [id number] Transcribed By: Self Edit Transcribed Date: 05/31/2025 [...] is recommended in 1 year. Mammo Location: [facility], [address] [place] [address], [id number], . -------- FINAL REPORT -------- Dictated By: Alyssa Mann Dictated Date: 03/26/2025 10:45 ET Assigned Physician: Alyssa Mann Reviewed and Electronically Signed By: Alyssa Mann Signed Date: 03/26/2025 14:22 ET Workstation ID: [id number] Transcribed By: Self Edit Transcribed Date: 03/26/2025 [...] is recommended in 1 year. Mammo Location: [facility], [address] [place] [address], [id number], . -------- FINAL REPORT -------- Dictated By: Alyssa Mann Dictated Date: 03/26/2025 10:45 ET Assigned Physician: Alyssa Mann Reviewed and Electronically Signed By: Alyssa Mann Signed Date: 03/26/2025 14:22 ET Workstation ID: [id number] Transcribed By: Self Edit Transcribed Date: 03/26/2025 10:59 ET Juancarlos Stahl MD IMG BI PROCEDURES Final Result * Depression Screening (11/15/2023) Pathologist [facility] Depression Screening abstracted Historical Provider HEALTH MAINTENANCE Final Result * Hepatitis C Screening (06/04/2021) Pathologist [facility] Hepatitis C Screening abstracted Historical Provider HEALTH MAINTENANCE Final Result * Colonoscopy (04/20/2016) Pathologist [facility] Colonoscopy no interpretation , abstracted Anatomical Region Laterality Modality Other Historical Provider HEALTH MAINTENANCE Final Result * HIV Screening (12/06/2014) [facility] [address] HIV Screening abstracted Historical Provider HEALTH MAINTENANCE Final Result * Pap Smear (06/28/2012) Pathologist [facility] Pap smear negative, abstracted [facility] Provider HEALTH MAINTENANCE Final Result from Last 3 Months or Most Recently Relevant to Health Maintenance Insurance [facility] [employer] Care Teams Elementary Librarian Relationship Specialty Start Date End Date Juancarlos Stahl MD [address] [place] [phone] PCP - General Internal Medicine 08/11/24
== END 2025-08-27 16:20 | disposition home or self-care (01) ==
PROVIDERS: Emergency Provider Emergency Medicine Emergency Medical Services; PCP Internal Medicine
DX: M54.16 Radiculopathy, lumbar region (principal); M79.651 Pain in right thigh; Z79.899 Other long term (current) drug therapy
CPT/HCPCS: 99282; 99283